=== PATIENT | male | born 1945 | race Caucasian/White ===

== ENCOUNTER 2016-10-29 08:03 | Emergency (ER) | payer MEDICARE, BC ==
[2016-10-29] MEDS ORDERED: SODIUM CHLORIDE 0.9% 500 ML IV STA (08:17)
[2016-10-29] MEDS ORDERED: SODIUM CHLORIDE 0.9% 1,000 ML IV STA (08:17)
--- NOTE | 2016-10-29 08:19 | ED ---
General Adult HPI - General Chief complaint: Neuro Symptoms/Deficit Stated complaint: facial and neck numbness Time Seen by Provider: 10/29/16 08:16 Source: patient, RN notes reviewed, old records reviewed Mode of arrival: ambulatory Limitations: no limitations - History of Present Illness Initial comments: This is a 70-year-old male to the ER for evaluation. She comes in for evaluation of left upper arm and lower arm volar aspect of leg and facial paresthesias, numbness tingling of those extremities. Occasional weakness in his left leg. He states symptoms seem to come and go at this time he is without any complaint. No recent chest pain or headache. Patient to sober from diabetes although well controlled, and high cholesterol - Related Data Home Medications Medication Instructions Recorded Confirmed Benazepril HCl 40 mg PO DAILY 10/29/16 10/29/16 Fluticasone Nasal [place] [Flonase 2 spr EA NOSTRIL DAILY 10/29/16 10/29/16 Nasal [place]] Ibuprofen [Advil] 200 - 400 mg PO Q8HR PRN 10/29/16 10/29/16 Lansoprazole 30 mg PO DAILY 10/29/16 10/29/16 amLODIPine [Norvasc] 10 mg PO DAILY 10/29/16 10/29/16 Allergies Allergy/AdvReac Type Severity Reaction Status Date / Time No Known Allergies Allergy Verified 10/29/16 08:43 Review of Systems ROS Statement: Those systems with pertinent positive or pertinent negative responses have been documented in the HPI. ROS Other: All systems not noted in ROS Statement are negative. Past Medical History Past Medical History: GERD/Reflux, Hypertension History of Any Multi-Drug Resistant Organisms: None Reported Additional Past Surgical History / Comment(s): left knee Smoking Status: Former smoker Past Alcohol Use History: None Reported Past Drug Use History: None Reported General Exam - General Exam Comments Initial Comments: NIH 0 Limitations: no limitations General appearance: alert, in no apparent distress Head exam: Present: atraumatic, normocephalic, normal inspection Eye exam: Present: normal appearance, PERRL, EOMI. Absent: scleral icterus, conjunctival injection, periorbital swelling ENT exam: Present: normal exam, mucous membranes moist Neck exam: Present: normal inspection. Absent: tenderness, meningismus, lymphadenopathy Respiratory exam: Present: normal lung sounds bilaterally. Absent: respiratory distress, wheezes, rales, rhonchi, stridor Cardiovascular Exam: Present: regular rate, normal rhythm, normal heart sounds. Absent: systolic murmur, diastolic murmur, rubs, gallop, clicks GI/Abdominal exam: Present: soft, normal bowel sounds. Absent: distended, tenderness, guarding, rebound, rigid Extremities exam: Present: normal inspection, full ROM, normal capillary refill. Absent: tenderness, pedal edema, joint swelling, calf tenderness Back exam: Present: normal inspection Neurological exam: Present: alert, oriented X3, CN II-XII intact Psychiatric exam: Present: normal affect, normal mood Skin exam: Present: warm, dry, intact, normal color. Absent: rash Course Vital Signs 10/29/16 10/29/16 08:08 09:20 Temperature 97.8 F Pulse Rate 78 98 Respiratory 18 18 Rate Blood Pressure 163/84 154/90 O2 Sat by Pulse 98 96 Oximetry - Reevaluation(s) Reevaluation #1: 10/29/16 11:07 Spoke with patient at length regarding diagnosis and prognosis EKG Findings - EKG Comments: EKG Findings:: EKG shows normal sinus rhythm rate of 74, TN 182, QRS 138, QTc 461 Medical Decision Making - Medical Decision Making 70 male here for evaluation regarding neurological complaints and symptoms. Patient is over from TIA and appears. Patient's diabetes, high cholesterol. Patient's symptoms appear to be strictly left-sided with paresthesias in both his hands legs with occasional loss of strength in his left leg. At this time is neurologically intact, patient will be admitted - Lab Data Result diagrams: 10/29/16 08:40 10/29/16 08:40 Lab Results 10/29/16 10/29/16 10/29/16 Range/Units 08:40 08:40 08:40 WBC 7.4 (3.8-10.6) k/uL RBC 5.16 (4.30-5.90) m/uL Hgb 15.8 (13.0-17.5) gm/dL Hct 47.2 (39.0-53.0) % MCV 91.4 (80.0-100.0) fL MCH 30.7 (25.0-35.0) pg MCHC 33.6 (31.0-37.0) g/dL RDW 13.2 (11.5-15.5) % Plt Count 313 (150-450) k/uL Neutrophils % 63 % Lymphocytes % 24 % Monocytes % 6 % Eosinophils % 3 % Basophils % 1 % Neutrophils # 4.7 (1.3-7.7) k/uL Lymphocytes # 1.8 (1.0-4.8) k/uL Monocytes # 0.5 (0-1.0) k/uL Eosinophils # 0.2 (0-0.7) k/uL Basophils # 0.1 (0-0.2) k/uL PT (9.0-12.0) sec INR (<1.2) APTT (22.0-30.0) sec Sodium 142 (137-145) mmol/L Potassium 4.4 (3.5-5.1) mmol/L Chloride 105 (98-107) mmol/L Carbon Dioxide 24 (22-30) mmol/L Anion Gap 13 mmol/L BUN 15 (9-20) mg/dL Creatinine 0.86 (0.66-1.25) mg/dL Est GFR (MDRD) Af Amer >60 (>60 ml/min/1.73 sqM) Est GFR (MDRD) Non-Af >60 (>60 ml/min/1.73 sqM) Glucose 134 H (74-99) mg/dL Calcium 9.6 (8.4-10.2) mg/dL Phosphorus 3.2 (2.5-4.5) mg/dL Magnesium 1.8 (1.6-2.3) mg/dL Total Bilirubin 0.8 (0.2-1.3) mg/dL AST 30 (17-59) U/L ALT 40 (21-72) U/L Alkaline Phosphatase 109 (38-126) U/L Total Creatine Kinase 90 (55-170) U/L CK-MB (CK-2) 1.1 (0.0-2.4) ng/mL CK-MB (CK-2) Rel Index 1.2 Troponin I <0.012 (0.000-0.034) ng/mL Total Protein 8.2 (6.3-8.2) g/dL Albumin 4.5 (3.5-5.0) g/dL 10/29/16 Range/Units 08:40 WBC (3.8-10.6) k/uL RBC (4.30-5.90) m/uL Hgb (13.0-17.5) gm/dL Hct (39.0-53.0) % MCV (80.0-100.0) fL MCH (25.0-35.0) pg MCHC (31.0-37.0) g/dL RDW (11.5-15.5) % Plt Count (150-450) k/uL Neutrophils % % Lymphocytes % % Monocytes % % Eosinophils % % Basophils % % Neutrophils # (1.3-7.7) k/uL Lymphocytes # (1.0-4.8) k/uL Monocytes # (0-1.0) k/uL Eosinophils # (0-0.7) k/uL Basophils # (0-0.2) k/uL PT 9.6 (9.0-12.0) sec INR 0.9 (<1.2) APTT 24.2 (22.0-30.0) sec Sodium (137-145) mmol/L Potassium (3.5-5.1) mmol/L Chloride (98-107) mmol/L Carbon Dioxide (22-30) mmol/L Anion Gap mmol/L BUN (9-20) mg/dL Creatinine (0.66-1.25) mg/dL Est GFR (MDRD) Af Amer (>60 ml/min/1.73 sqM) Est GFR (MDRD) Non-Af (>60 ml/min/1.73 sqM) Glucose (74-99) mg/dL Calcium (8.4-10.2) mg/dL Phosphorus (2.5-4.5) mg/dL Magnesium (1.6-2.3) mg/dL Total Bilirubin (0.2-1.3) mg/dL AST (17-59) U/L ALT (21-72) U/L Alkaline Phosphatase (38-126) U/L Total Creatine Kinase (55-170) U/L CK-MB (CK-2) (0.0-2.4) ng/mL CK-MB (CK-2) Rel Index Troponin I (0.000-0.034) ng/mL Total Protein (6.3-8.2) g/dL Albumin (3.5-5.0) g/dL - Radiology Data Radiology results: report reviewed (CT brain is negative for acute disease), image reviewed Disposition Clinical Impression: Transient cerebral ischemia Disposition: ADMITTED IP TO THIS HOSP Condition: Fair Referrals: Ivan Hilton MD [Primary Care Provider] - 1-2 days
[2016-10-29 09:03] LABS: Basophils # (A) 0.1 k/uL (0-0.2); Basophils % (A) 1 %; CH 29.7; CHCM 32.6; Eosinophils # (A) 0.2 k/uL (0-0.7); Eosinophils % (A) 3 %; HCT 47.2 % (39.0-53.0); HDW 2.44; HGB 15.8 gm/dL (13.0-17.5); Luc # (Auto) 0.24; Luc % (Auto) 3; Lymphocytes # (A) 1.8 k/uL (1.0-4.8); Lymphocytes % (A) 24 %; MCH 30.7 pg (25.0-35.0); MCHC 33.6 g/dL (31.0-37.0); MCV 91.4 fL (80.0-100.0); Mean Platelet Volume 6.9; Monocytes # (A) 0.5 k/uL (0-1.0); Monocytes % (A) 6 %; Neutrophils # (A) 4.7 k/uL (1.3-7.7); Neutrophils % (A) 63 %; RBC 5.16 m/uL (4.30-5.90); RDW 13.2 % (11.5-15.5); WBC 7.4 k/uL (3.8-10.6); WBC (Perox) 7.06
[2016-10-29 09:13] LABS: ALT 40 U/L (21-72); AST 30 U/L (17-59); Alkaline Phosphatase 109 U/L (38-126); Anion Gap 13 mmol/L; Blood Urea Nitrogen 15 mg/dL (9-20); Calcium 9.6 mg/dL (8.4-10.2); Carbon Dioxide 24 mmol/L (22-30); Chloride 105 mmol/L (98-107); Glucose 134 mg/dL (74-99); Magnesium 1.8 mg/dL (1.6-2.3); Non-African American GFR(MDRD) >60 (>60 ml/min/1.73 sqM); Phosphorous 3.2 mg/dL (2.5-4.5); Potassium 4.4 mmol/L (3.5-5.1); Sodium 142 mmol/L (137-145); Total Bilirubin 0.8 mg/dL (0.2-1.3); Total Protein 8.2 g/dL (6.3-8.2)
[2016-10-29 09:14] LABS: INR 0.9 (<1.2); Partial Thromboplastin Time 24.2 sec (22.0-30.0); Prothrombin Time 9.6 sec (9.0-12.0)
--- NOTE | 2016-10-29 09:28 | CT ---
EXAMINATION TYPE: CT brain wo con DATE OF EXAM: 10/29/2016 COMPARISON: NONE HISTORY: Lt facial,arm and leg numbness CT DLP: 1147 mGycm Automated exposure control for dose reduction was used. FINDINGS: There are mild, generalized changes of sulcal prominence and ventriculomegaly, compatible with mild a trophic change. There is mild, diffuse periventricular white matter lucency, compatible with small ve ssel ischemic change. There is no acute focal lesion, mass effect or midline shift. I do not see evid ence of intracranial blood. Visualized portions of the paranasal sinuses and mastoids are clear. IMPRESSION: 1. NO ACUTE INTRACRANIAL ABNORMALITY. 2. MILD DEGENERATIVE CHANGE.
[2016-10-29 09:31] LABS: Creatine Kinase 90 U/L (55-170)
--- NOTE | 2016-10-29 09:33 | CT ---
EXAMINATION TYPE: CT abdomen pelvis wo con DATE OF EXAM: 10/29/2016 COMPARISON: NONE HISTORY: Rt low back pain and numbness in Lt leg CT DLP: 1112 mGycm Automated exposure control for dose reduction was used. FINDINGS: Visualized portions of the lungs are clear. There is no pleural or pericardial fluid. The h eart is not enlarged. There is a small hiatal hernia. Within the abdomen, the liver is prominent measuring 20 cm. This is largely due to a Neo's lobe. T he spleen and gallbladder are normal. Both adrenal glands are normal. There is no evidence of hydronephrosis or nephrolithiasis. Limited views of the pancreas are normal. There is no significant retroperitoneal, iliac or inguinal adenopathy. There is calcification within the prostate. The bladder is unremarkable. There are scattered diverticula throughout the left side of the colon. There is no radiographic evide nce of diverticulitis. Small bowel loops are normal. There is a direct inguinal hernia on the right containing fat only. There is degenerative change in the SI joints. There is facet arthropathy in the lower lumbar spine. There is degenerative disc disease and fairly prominent hypertrophic spondylosis. There is severe debbi tral canal stenosis at L4-5 secondary to combination of facet hypertrophy and diffuse disc bulging. IMPRESSION: 1. SMALL HIATAL HERNIA. 2. PROMINENCE OF THE LIVER. 3. MINIMAL, UNCOMPLICATED DIVERTICULOSIS OF THE LEFT SIDE OF THE COLON. 4. RIGHT-SIDED DIRECT INGUINAL HERNIA CONTAINING FAT ONLY. 5. MODERATE DEGENERATIVE CHANGE THROUGHOUT THE THORACIC AND LUMBAR SPINES. 6. SEVERE CENTRAL CANAL STENOSIS, L4-5.
[2016-10-29 09:45] LABS: Creatine Kinase MB 1.1 ng/mL (0.0-2.4); Troponin I <0.012 ng/mL (0.000-0.034)
[2016-10-29] MEDS ORDERED: ASPIRIN 325 MG TAB PO STA (11:02)
--- NOTE | 2016-10-29 12:19 | US ---
EXAMINATION TYPE: US carotid duplex BILAT DATE OF EXAM: 10/29/2016 COMPARISON: NONE CLINICAL HISTORY: Stenosis. EXAM MEASUREMENTS: RIGHT: Peak Systolic Velocity (PSV) cm/sec ----- Right CCA: 84.3 ----- Right ICA: 74.8 ----- Right ECA: 99.9 ICA/CCA ratio: 0.9 RIGHT: End Diastole cm/sec ----- Right CCA: 13.3 ----- Right ICA: 10.2 ----- Right ECA: 8.6 LEFT: Peak Systolic Velocity (PSV) cm/sec ----- Left CCA: 78.4 ----- Left ICA: 61.2 ----- Left ECA: 80.1 ICA/CCA ratio: 0.8 LEFT: End Diastole cm/sec ----- Left CCA: 14.8 ----- Left ICA: 13.3 ----- Left ECA: 0.0 VERTEBRALS (direction of flow): Right Vertebral: Antegrade Left Vertebral: Antegrade Mild plaque, no significant velocity elevations. IMPRESSION: I DO NOT SEE EVIDENCE OF A HEMODYNAMICALLY SIGNIFICANT STENOSIS IN EITHER CAROTID SYSTEM. Criteria for Assigning % of Stenosis / Diameter reduction (Estimation based on the indirect measurements of the internal carotid artery velocities (ICA PSV). 1. Normal (no stenosis)=ICA PSV < 125 cm/s: ratio < 2.0: ICA EDV<40 cm/s. 2. Less than 50% stenosis=ICA PSV < 125 cm/s: ratio < 2.0: ICA EDV<40 cm/s. 3. 50 to 69% stenosis=ICA PSV of 125 to 230 cm/s: ration 2.0 ? 4.0: ICA EDV 40-100 cm/s. 4. Greater than 70% stenosis to near occlusion= ICA PSV > 230 cm/s: ratio > 4.0: ICA EDV > 100 cm/s. 5. Near occlusion= ICA PSV velocities may be low or undetectable: variable ratio and ICA EDV. 6. Total occlusion=unable to detect flow.
[2016-10-29 13:00] LABS: Glucose,Whole Blood 129 mg/dL (75-99)
[2016-10-29 13:28] LABS: VBG PH 7.38 (7.31-7.41)
[2016-10-29 13:47] VITALS: BP 151/90; PULSE 103; RESP 16; TEMP 97.8
[2016-10-29] MEDS ORDERED: ATORVASTATIN 80 MG TAB PO SCH (21:00)
[2016-10-30] MEDS ORDERED: ASPIRIN 325 MG TAB PO SCH (09:00)
== END 2016-10-29 13:37 | disposition other institution (70) ==
LOC: EC 08:03 → UNDOADMOB 11:03 → 6SEL 11:03 → EC 13:37
DX: G45.9 Transient cerebral ischemic attack, unspecified (principal); I10 Essential (primary) hypertension; K21.9 Gastro-esophageal reflux disease without esophagitis; Z87.891 Personal history of nicotine dependence; Z79.51 Long term (current) use of inhaled steroids; Z79.899 Other long term (current) drug therapy
CPT/HCPCS: 36415; 70450; 74176; 80053; 82550; 82553; 82803; 83735; 84100; 84484; 85025; 85610; 85730; 93005; 93880; 96360; 96361; 99285

== ENCOUNTER → 2016-11-12 | Outpatient (CLI) | payer MEDICARE, BC ==
--- NOTE | 2016-11-12 15:06 | MR ---
MR brain without contrast HISTORY: Transient cerebral ischemic attack Multiplanar multisequence imaging obtained through the brain. Correlation to CT brain 10/29/2016 There is no restricted diffusion. Cortical atrophy is present. There are normal vascular flow voids p resent. Periventricular confluent and scattered hyperintensities are present within the deep white ma tter, similar foci are present in the juxtacortical and pericallosal brain, centrum semiovale. There is no hemorrhage or hydrocephalus. Cerebellopontine angles, corpus callosum, pituitary, cervical medu llary junction are within normal limits. The orbits show symmetric appearance. IMPRESSION: Findings likely related to chronic small vessel ischemia, age related atrophy. White tamar er demyelination is nonspecific however.
== END | disposition home or self-care (01) ==
LOC: RADMRIMAIN 13:43
PROVIDERS: ATTEND Family Medicine
DX: R90.89 Other abnormal findings on diagnostic imaging of central nervous system (principal); G45.9 Transient cerebral ischemic attack, unspecified
CPT/HCPCS: 70551

== ENCOUNTER → 2016-11-27 | Outpatient (CLI) | payer MEDICARE, BC ==
--- NOTE | 2016-11-28 09:29 | ECHOF ---
Referral Reason:G45.9 transient cerebral ischemic attack MEASUREMENTS -------- HEIGHT: 182.9 cm WEIGHT: 98.0 kg BP: 163/80 IVSd: 1.3 cm (0.6 - 1.1) LVIDd: 4.2 cm (3.9 - 5.3) LVPWd: 1.3 cm (0.6 - 1.1) IVSs: 1.9 cm LVIDs: 2.2 cm LVPWs: 1.6 cm Ao Diam: 3.6 cm (2.0 - 3.7) AV Cusp: 2.4 cm (1.5 - 2.6) LA Diam: 3.1 cm (2.7 - 3.8) MV EXCURSION: 12.169 mm (> 18.000) MV EF SLOPE: 88 mm/s (70 - 150) EPSS: 1.1 cm MV E Kenton: 0.55 m/s MV DecT: 135 ms MV A [place]: 0.65 m/s MV E/A Ratio: 0.85 RAP: 5.00 mmHg RVSP: 11.68 mmHg FINDINGS -------- Resting tachycardia (HR>100bpm). This was a technically good study. There is mild concentric left ventricular hypertrophy. Overall left ventricular systolic function is normal with, an EF between 55 - 60 %. The right ventricle is normal in size and function. The left atrium is normal in size. The right atrium is normal in size. The aortic valve is trileaflet, and appears structurally normal. No aortic stenosis or regurgitation. There is trace mitral regurgitation. Trace tricuspid regurgitation present. The right ventricular systolic pressure, as measured by Doppler, is 11.68mmHg. Pulmonic valve appears structurally normal. The aortic root size is normal. Normal inferior vena cava with normal inspiratory collapse consistent with estimated right atrial pressure of 5 mmHg. The pericardium is normal. CONCLUSIONS -------- 1. Resting tachycardia (HR>100bpm). 2. Trace tricuspid regurgitation present. 3. The right ventricular systolic pressure, as measured by Doppler, is 11.68mmHg. 4. Pulmonic valve appears structurally normal. 5. The aortic root size is normal. 6. Normal inferior vena cava with normal inspiratory collapse consistent with estimated right atrial pressure of 5 mmHg. 7. The pericardium is normal. 8. This was a technically good study. 9. There is mild concentric left ventricular hypertrophy. 10. Overall left ventricular systolic function is normal with, an EF between 55 - 60 %. 11. The right ventricle is normal in size and function. 12. The left atrium is normal in size. 13. The right atrium is normal in size. 14. The aortic valve is trileaflet, and appears structurally normal. No aortic stenosis or regurgitation. 15. There is trace mitral regurgitation. DIRECTOR CLOUD TRANSFORMATION: Maricruz Oneal RDCS
== END | disposition home or self-care (01) ==
LOC: RADECHMAIN 13:10
PROVIDERS: ATTEND Family Medicine
DX: I08.1 Rheumatic disorders of both mitral and tricuspid valves (principal); R00.0 Tachycardia, unspecified; G45.9 Transient cerebral ischemic attack, unspecified
CPT/HCPCS: 93306

== ENCOUNTER → 2020-02-23 | Outpatient (CLI) | payer MEDICARE, BC ==
--- NOTE | 2020-02-23 15:59 | FL ---
Fluoroscopy INDICATION: Dysphasia FINDINGS: Fluoroscopy time: 45 seconds. Images obtained: 26. Fluoroscopic spot imaging and overhead radiographs were obtained. Esophagus dilates to normal caliber has normal contour gastroesophageal junction. Gastroesophageal ju nction opens to normal caliber. No intraluminal or extra defects are evident. Reflux was not identifi ed. Note is made of tertiary contractions during the examination. There is incomplete stripping of the es ophageal bolus the horizontal drinking position. Overhead radiographs demonstrate a large second portion duodenal diverticulum. IMPRESSIONS: 1. Presbyesophagus. 2. Duodenal diverticulum
== END | disposition home or self-care (01) ==
LOC: RADUSWWP 10:28
PROVIDERS: ATTEND Otolaryngology
DX: K22.8 Other specified diseases of esophagus (principal); K57.10 Diverticulosis of small intestine without perforation or abscess without bleeding
CPT/HCPCS: 74220

== ENCOUNTER 2020-03-20 06:08 | Day surgery (SDC) | payer MEDICARE, BC ==
[2020-03-16 13:56] VITALS: BMI 27.8
[~2020-03-20 06:08] MED LIST: ACETAMINOPHEN TAB 500 MG TAB PO PRN; DEXAMETHASONE SOD PHOSPHATE 4 MG/ML 1 ML VIAL IV ONE; HEPARIN SODIUM,PORCINE 5,000 UNIT/ML 1 ML VIAL SQ PRN; HYDROmorphone 0.5 MG/0.5 ML SYRINGE IVP PRN; LACTATED RINGERS 1,000 ML IV SCH; LIDOCAINE 1% (10MG/ML) FOR IV START INTRADERMA PRN; MIDAZOLAM 2 MG/2 ML VIAL IV PRN; ONDANSETRON 4 MG/2 ML VIAL IVP ONE
[2020-03-20 07:06] LABS: Glucose,Whole Blood 126 mg/dL (75-99)
[2020-03-20] MEDS ORDERED: BUPIVACAINE (PF) 0.25% 30 ML VIAL SQ ONE ×2 (07:18→08:16)
[2020-03-20] MEDS ORDERED: ACETAMINOPHEN IV (For NPO) 1,000 MG/100 ML VIAL IVPB ONE (07:55)
[2020-03-20] MEDS ORDERED: DEXAMETHASONE SOD PHOSPHATE 4 MG/ML 1 ML VIAL ONE (07:57)
[2020-03-20] MEDS ORDERED: MIDAZOLAM 2 MG/2 ML VIAL ONE (07:57)
[2020-03-20] MEDS ORDERED: GLYCOPYRROLATE 0.2 MG/ML 2 ML VIAL ONE (07:57)
[2020-03-20] MEDS ORDERED: ROPIVACAINE 5 MG/ML 30 ML VIAL ONE (07:57)
[2020-03-20] MEDS ORDERED: SUCCINYLCHOLINE CHLORIDE 100 MG/5 ML SYR IV ONE (07:57)
[2020-03-20] MEDS ORDERED: LIDOCAINE 1% INJ 10MG/ML (20 ML MDV) ONE (07:57)
[2020-03-20] MEDS ORDERED: fentaNYL (PF) 50 MCG/ML 2 ML AMP ONE (07:57)
[2020-03-20] MEDS ORDERED: KETAMINE 10 MG/ML 20 ML VIAL ONE (07:57)
[2020-03-20] MEDS ORDERED: PHENYLEPHRINE 10 MG/ML VIAL ONE (07:57)
[2020-03-20] MEDS ORDERED: PROPOFOL 10 MG/ML 20 ML VIAL IV ONE (07:57)
[2020-03-20] MEDS ORDERED: ROCURONIUM 10 MG/ML (10 ML VIAL) IV ONE (07:57)
[2020-03-20] MEDS ORDERED: NEOSTIGMINE 1 MG/ML 10 ML VIAL ONE (07:57)
[2020-03-20 08:52] VITALS: TEMP 99
[2020-03-20 09:01] VITALS: RESP 16
[2020-03-20] MEDS ORDERED: LACTATED RINGERS 1,000 ML IV ONE (09:02)
--- NOTE | 2020-03-20 09:03 | P.GSHP ---
History of Present Illness H&P Date: 03/20/20 Chief Complaint: Right inguinal hernia This a 74-year-old male who presents today for laparoscopic robotic sparing cranial hernia. Patient has a complaints of a tender mass the right groin. Past Medical History Past Medical History: Diabetes Mellitus, GERD/Reflux, Hypertension Additional Past Medical History / Comment(s): problems swallowing -pills get stuck-crushes pills with applesauce -states EGD scheduled for 03/22/20, no longer on diabetic meds-manages diet and exercises., right inguinal hernia. History of Any Multi-Drug Resistant Organisms: None Reported Additional Past Surgical History / Comment(s): left knee Past Anesthesia/Blood Transfusion Reactions: No Reported Reaction Past Psychological History: Depression Additional Psychological History / Comment(s): passed November 08, 2019. Smoking Status: Former smoker Past Alcohol Use History: None Reported Additional Past Alcohol Use History / Comment(s): quit smoking 42 years ago , smoked 1 ppd, started smoking age 17. Past Drug Use History: None Reported - Past Family History Mother Family Medical History: No Reported History Medications and Allergies Home Medications Medication Instructions Recorded Confirmed Type Fluticasone Nasal [place] [Flonase 1 - 2 spr EA NOSTRIL DAILY PRN 10/29/16 03/20/20 History Nasal [place]] Benazepril HCl 40 mg PO DAILY 03/16/20 03/20/20 History Hydrocortisone Cream 1 applic TOPICAL DIRECTED PRN 03/16/20 03/20/20 History [Hydrocortisone 2.5% Cream] Lansoprazole 30 mg PO Q48H 03/16/20 03/20/20 History amLODIPine [Norvasc] 10 mg PO DAILY 03/16/20 03/20/20 History Allergies Allergy/AdvReac Type Severity Reaction Status Date / Time No Known Allergies Allergy Verified 03/20/20 06:47 Surgical - Exam Vital Signs Temp Pulse Resp BP Pulse Ox 97.8 F 79 16 129/72 98 03/20/20 06:41 03/20/20 06:41 03/20/20 06:41 03/20/20 06:41 03/20/20 06:41 - General well developed, well nourished, no distress - Eyes PERRL - ENT normal pinna - Neck no masses - Respiratory normal expansion - Cardiovascular Rhythm: regular - Abdomen Abdomen: soft, non tender Results - Labs Abnormal Lab Results - Last 24 Hours (Table) 03/20/20 Range/Units 07:03 POC Glucose (mg/dL) 126 H (75-99) mg/dL Assessment and Plan Assessment: Right inguinal hernia. We'll perform laparoscopic robotic-assisted repair.
--- NOTE | 2020-03-20 09:05 | P.OP ---
Date of Procedure: 03/20/20 Preoperative Diagnosis: Right inguinal hernia Postoperative Diagnosis: Right inguinal hernia Procedure(s) Performed: Laparoscopic robotic system repair of right inguinal hernia Anesthesia: ALEX Surgeon: Carlos Barton Estimated Blood Loss (ml): 5 Pathology: none sent Condition: stable Disposition: PACU Description of Procedure: The patient's placed on the operating table in the supine position. The patient received general anesthesia. The patient's abdomen was prepped and draped in usual sterile fashion. The skin was anesthetized 1% local Xylocaine at the incision sites. Using an 11 blade a skin incision was made at the umbilicus. The fascia was grasped with a Krishna and then the peritoneal cavity was entered with the Veress needle. Position of the Veress needle was confirmed with a positive drop test. After adequate insufflation a 5 mm trocar was placed into the peritoneal cavity. The Laparoscope was placed the peritoneal cavity. And a robotic 8 mm trocar was placed in the right lateral position and then another 8 mm robotic trochars placed in the left lateral position. The original 5 mm trocar was exchanged for a 12 mm trocar. The patient was placed in reverse Trendelenburg and then the patient was docked to the robot. Next the peritoneum over top of the hernia was incised and then using blunt and sharp dissection and electrocautery the hernia sac was dissected free from the floor of the inguinal canal. The hernia sac was completely reduced into the peritoneal cavity. And then using the [employer] recruiter mesh the hernia was repaired. The peritoneum was then sutured with 20V lock suture. The patient was then undocked the robot. The needle was withdrawn from the peritoneal cavity. The umbilical trocar site was closed with 0 Ethibond suture. The skin was closed interrupted 3-0 Monocryl suture. Dermabond dressing was applied. Patient was sent to recovery in stable condition.
[2020-03-20 10:33] VITALS: BP 134/78; PULSE 81
--- NOTE | 2020-03-20 13:59 | P.ANPRN ---
Procedure Note - Anesthesia - Nerve Block Performed Bilateral Transversus Abdominis Single Time Out Performed: Yes Date of Procedure: 03/20/20 Procedure Start Time: :18 Procedure Stop Time: : Location of Patient: PreOp Indication: Acute Post-Operative Pain, Requested by Surgeon Sedation Type: Sedate with meaningful contact maintained Preparation: Sterile Prep Position: Supine Needle Types: Pajunk Needle Gauge: 21 Ultrasound used to visualize needle placement: Yes Ultrasound used to observe medication spread: Yes Blood Aspirated: No Pain Paresthesia on Injection Noted: No Resistance on Injection: Normal Image Stored and Saved: Yes Events: Uneventful and Well Tolerated (ropi .5% 20 cc plus dexamethasone 4mg bilaterally)
== END 2020-03-20 11:54 | disposition home or self-care (01) ==
LOC: OR 06:08
PROVIDERS: ATTEND Surgery
DX: K40.90 Unilateral inguinal hernia, without obstruction or gangrene, not specified as recurrent (principal); E11.9 Type 2 diabetes mellitus without complications; I10 Essential (primary) hypertension; K21.9 Gastro-esophageal reflux disease without esophagitis; F32.9 Major depressive disorder, single episode, unspecified; Z87.891 Personal history of nicotine dependence; Z63.4 Disappearance and death of family member; Z79.899 Other long term (current) drug therapy; Z98.890 Other specified postprocedural states
CPT/HCPCS: 49650; 64488; C1781; J2250; J1644; J1100; J2370; J2710; J0690; J2405; J2001; J3010; J2795; J0131; J0330; J2704

== ENCOUNTER 2020-03-20 14:26 | Emergency (ER) | payer MEDICARE, BC ==
[2020-03-20 14:35] VITALS: BP 146/86; PULSE 100; RESP 20; TEMP 98.6
--- NOTE | 2020-03-20 14:40 | ED ---
Male Urogenital HPI - General Chief complaint: Urogenital Stated complaint: Post op male gu issues Time Seen by Provider: 03/20/20 14:38 Source: patient Mode of arrival: ambulatory Limitations: no limitations - History of Present Illness Initial comments: 74-year-old male presenting to the emergency department with a chief complaint of bladder pressure. Patient states he was discharged earlier today after having a right inguinal hernia repaired upper scapula. Patient states after he was discharged, he developed some urinary retention and pressure in the suprapubic region. Patient states she is still able to urinate, although not as much as usual. He does report history of an enlarged prostate but the obstructive urinary symptoms and never been this significant. States he contacted who performed the procedure and he advised them to come to emergency department for evaluation. He denies any hematuria, dysuria. Denies any abdominal pain chest pain shortness of breath. States there is mild pain at the incision sites but nothing significant. - Related Data Home Medications Medication Instructions Recorded Confirmed Fluticasone Nasal [place] [Flonase 1 - 2 spr EA NOSTRIL DAILY PRN 10/29/16 03/20/20 Nasal [place]] Benazepril HCl 40 mg PO DAILY 03/16/20 03/20/20 Hydrocortisone Cream 1 applic TOPICAL DIRECTED PRN 03/16/20 03/20/20 [Hydrocortisone 2.5% Cream] Lansoprazole 30 mg PO Q48H 03/16/20 03/20/20 amLODIPine [Norvasc] 10 mg PO DAILY 03/16/20 03/20/20 Previous Rx's Medication Instructions Recorded Acetaminophen Tab [Tylenol] 650 mg PO Q6H #30 tab 03/20/20 Docusate [Colace] 100 mg PO BID #20 capsule 03/20/20 Ibuprofen [Motrin] 600 mg PO Q6HR PRN #40 tab 03/20/20 oxyCODONE HCL [OxyIR] 5 mg PO Q4H PRN 3 Days #18 tab 03/20/20 Allergies Allergy/AdvReac Type Severity Reaction Status Date / Time No Known Allergies Allergy Verified 03/20/20 14:35 Review of Systems ROS Statement: Those systems with pertinent positive or pertinent negative responses have been documented in the HPI. ROS Other: All systems not noted in ROS Statement are negative. Past Medical History Past Medical History: GERD/Reflux, Hypertension History of Any Multi-Drug Resistant Organisms: None Reported Additional Past Surgical History / Comment(s): left knee, Inguinal hernia Past Psychological History: No Psychological Hx Reported Smoking Status: Never smoker Past Alcohol Use History: None Reported Past Drug Use History: None Reported General Exam Limitations: no limitations General appearance: alert, in no apparent distress Head exam: Present: atraumatic, normocephalic, normal inspection Eye exam: Present: normal appearance, PERRL, EOMI Pupils: Present: normal accommodation ENT exam: Present: normal exam, normal oropharynx, mucous membranes moist, TM's normal bilaterally, normal external ear exam Neck exam: Present: normal inspection, full ROM. Absent: tenderness Respiratory exam: Present: normal lung sounds bilaterally. Absent: respiratory distress, wheezes, rales Cardiovascular Exam: Present: regular rate, normal rhythm, normal heart sounds. Absent: systolic murmur, diastolic murmur GI/Abdominal exam: Present: soft, tenderness (Mild tenderness over the bladder.), other (Multiple healing incision sites in the abdomen secondary to liver scopic surgery.). Absent: distended, guarding, rebound exam: Present: normal inspection. Absent: testicular tenderness, urethral discharge, scrotal swelling, vertical testicular lie, circumcision Extremities exam: Present: normal inspection, full ROM, normal capillary refill. Absent: tenderness, pedal edema, joint swelling, calf tenderness Back exam: Present: normal inspection, full ROM. Absent: tenderness, CVA tenderness (R), CVA tenderness (L) Neurological exam: Present: alert, oriented X3 Psychiatric exam: Present: normal affect, normal mood Skin exam: Present: warm, dry, intact, normal color Course Vital Signs 03/20/20 14:32 Temperature 98.6 F Pulse Rate 100 Respiratory 20 Rate Blood Pressure 146/86 O2 Sat by Pulse 97 Oximetry Medical Decision Making - Medical Decision Making 74-year-old male presenting to emergency Department with chief complaint of bladder pressure. On physical examination, patient has mild tenderness over the bladder. There is several incision sites secondary to inguinal hernia repair performed earlier today by . Bladder scan reveals 500 mL of post void residual volume. Full catheter was inserted and patient reported significant improvement in symptoms. She was given contact information for a urologist and he was advised to follow-up to have the Myers catheter removed. He was given thorough instructions regarding Myers catheter care. Patient is likely having postsurgical urinary retention from the anesthesia. Patient was offered laboratory workup, he declined. Strict return parameters were thoroughly discussed patient is understanding and agreeable. Case discussed with physician. - Lab Data Lab Results 03/20/20 Range/Units 15:00 Urine Color Light Yellow Urine Appearance Clear (Clear) Urine pH 6.0 (5.0-8.0) Ur Specific [place] 1.006 (1.001-1.035) Urine Protein Negative (Negative) Urine Glucose (UA) 3+ H (Negative) Urine Ketones Negative (Negative) Urine Blood Negative (Negative) Urine Nitrite Negative (Negative) Urine Bilirubin Negative (Negative) Urine Urobilinogen <2.0 (<2.0) mg/dL Ur Leukocyte Esterase Negative (Negative) Disposition Clinical Impression: Postoperative urinary retention Disposition: HOME SELF-CARE Condition: Stable Instructions (If sedation given, give patient instructions): Myers Catheter Placement and Care (ED), Myers Catheter Removal (DC) Additional Instructions: Follow-up with urology to have the Myers catheter removed. Return to emergency department if symptoms worsen. Is patient prescribed a controlled substance at d/c from ED?: No Referrals: Ivan Hilton MD [Primary Care Provider] - 1-2 days Jon Vásquez MD [STAFF PHYSICIAN] - 1-2 days Time of Disposition: 15:36
[2020-03-20 15:20] LABS: Appearance,Urine Clear (Clear); Bilirubin,Urine Negative (Negative); Blood,Urine Negative (Negative); Color,Urine Light Yellow; Glucose,Urine (UA) 3+ (Negative); Ketones,Urine Negative (Negative); Leukocyte Esterase,Urine Negative (Negative); Nitrite,Urine Negative (Negative); Protein,Urine Negative (Negative); Specific Gravity,Urine 1.006 (1.001-1.035); Urobilinogen,Urine <2.0 mg/dL (<2.0)
== END 2020-03-20 16:00 | disposition home or self-care (01) ==
LOC: EC 14:26
DX: R33.9 Retention of urine, unspecified (principal); N32.9 Bladder disorder, unspecified; K21.9 Gastro-esophageal reflux disease without esophagitis; I10 Essential (primary) hypertension; Z79.899 Other long term (current) drug therapy
CPT/HCPCS: 51702; 51798; 81003; 99284

== ENCOUNTER 2020-03-24 07:08 | Emergency (ER) | payer MEDICARE, BC ==
[2020-03-24 07:21] VITALS: RESP 18
--- NOTE | 2020-03-24 07:42 | ED ---
Male Urogenital HPI - General Chief complaint: Urogenital Stated complaint: Bladder Issues Time Seen by Provider: 03/24/20 07:28 Source: patient, RN notes reviewed Mode of arrival: ambulatory Limitations: no limitations - History of Present Illness Initial comments: This is a 74-year-old male with a history of a right inguinal hernia repair 15 who had to come back to urinary retention and get a catheter has been doing fine up until yesterday when he started developing burning with urination and frequency and some incontinence the geiger are somewhat better. He did contact his urologist who did instruct him to come here for evaluation. Patient denied any fevers chills or sweats. He did have a temperature 100.4 oh chills no shakes no pain other than the postop pain. No other complaints or modifying factors MD Complaint: dysuria - Related Data Home Medications Medication Instructions Recorded Confirmed Fluticasone Nasal [place] [Flonase 1 - 2 spr EA NOSTRIL DAILY PRN 10/29/1603/20 Nasal [place]] Benazepril HCl 40 mg PO DAILY 03/16/20 03/20/20 Hydrocortisone Cream 1 applic TOPICAL DIRECTED PRN 03/16/20 03/20/20 [Hydrocortisone 2.5% Cream] Lansoprazole 30 mg PO Q48H 03/16/20 03/20/20 amLODIPine [Norvasc] 10 mg PO DAILY 03/16/20 03/20/20 Previous Rx's Medication Instructions Recorded Acetaminophen Tab [Tylenol] 650 mg PO Q6H #30 tab 03/20/20 Docusate [Colace] 100 mg PO BID #20 capsule 03/20/20 Ibuprofen [Motrin] 600 mg PO Q6HR PRN #40 tab 03/20/20 oxyCODONE HCL [OxyIR] 5 mg PO Q4H PRN 3 Days #18 tab 03/20/20 Amoxic-Pot Clav 875-125Mg 1 tab PO Q12HR 10 Days #20 tab 03/24/20 [Augmentin 875-125] Phenazopyridine HCl [Pyridium] 100 mg PO TID #12 tab 03/24/20 Allergies Allergy/AdvReac Type Severity Reaction Status Date / Time No Known Allergies Allergy Verified 03/24/20 07:20 Review of Systems ROS Statement: Those systems with pertinent positive or pertinent negative responses have been documented in the HPI. ROS Other: All systems not noted in ROS Statement are negative. Past Medical History Past Medical History: GERD/Reflux, Hypertension History of Any Multi-Drug Resistant Organisms: None Reported Additional Past Surgical History / Comment(s): left knee, Inguinal hernia Past Psychological History: No Psychological Hx Reported Smoking Status: Never smoker Past Alcohol Use History: None Reported Past Drug Use History: None Reported General Exam - General Exam Comments Initial Comments: This is a well-developed well-nourished awake alert oriented times 3 male Limitations: no limitations General appearance: alert, in no apparent distress Head exam: Present: atraumatic, normocephalic, normal inspection Eye exam: Present: normal appearance, PERRL, EOMI. Absent: scleral icterus, conjunctival injection, periorbital swelling Neck exam: Present: normal inspection, full ROM. Absent: tenderness, meningi smus, lymphadenopathy Respiratory exam: Present: normal lung sounds bilaterally. Absent: respiratory distress, wheezes, rales, rhonchi, stridor Cardiovascular Exam: Present: regular rate, normal rhythm, normal heart sounds. Absent: systolic murmur, diastolic murmur, rubs, gallop, clicks GI/Abdominal exam: Present: soft, other (Minimal discomfort secondary to the surgery) exam: Present: normal inspection Extremities exam: Present: normal inspection, full ROM, normal capillary refill. Absent: tenderness, pedal edema, joint swelling, calf tenderness Back exam: Present: full ROM Neurological exam: Present: alert, oriented X3, CN II-XII intact Psychiatric exam: Present: normal affect, normal mood Skin exam: Present: warm, dry, intact, normal color. Absent: rash Course Vital Signs 03/24/20 07:18 Temperature 99.0 F Pulse Rate 95 Respiratory 18 Rate Blood Pressure 112/63 O2 Sat by Pulse 98 Oximetry Medical Decision Making - Medical Decision Making I did discuss findings with the patient and with Dr. Vásquez. Patient does demonstrate a leukocytosis but on exam he demonstrates no evidence of any problems with the surgery sites. Minimal discomfort palpation no fevers chills or sweats. Patient has stated on several occasions he will not stay in hospital. He was given a dose of Rocephin and will be switched to Augmentin. He is invited back at any time. Otherwise the clinical presentation is consistent with a cystitis. Return parameters were discussed - Lab Data Result diagrams: 03/24/20 08:10 03/24/20 08:10 Lab Results 03/24/20 03/24/20 03/24/20 Range/Units 07:47 08:10 08:10 WBC 29.6 H (3.8-10.6) k/uL RBC 4.64 (4.30-5.90) m/uL Hgb 14.0 (13.0-17.5) gm/dL Hct 41.1 (39.0-53.0) % MCV 88.5 (80.0-100.0) fL MCH 30.2 (25.0-35.0) pg MCHC 34.1 (31.0-37.0) g/dL RDW 13.1 (11.5-15.5) % Plt Count 265 (150-450) k/uL MPV 6.8 Neutrophils % 91 % Lymphocytes % 2 % Monocytes % 5 % Eosinophils % 1 % Basophils % 1 % Neutrophils # 26.8 H (1.3-7.7) k/uL Lymphocytes # 0.6 L (1.0-4.8) k/uL Monocytes # 1.5 H (0-1.0) k/uL Eosinophils # 0.2 (0-0.7) k/uL Basophils # 0.2 (0-0.2) k/uL Manual Slide Review Performed Sodium 132 L (137-145) mmol/L Potassium 4.0 (3.5-5.1) mmol/L Chloride 101 (98-107) mmol/L Carbon Dioxide 24 (22-30) mmol/L Anion Gap 7 mmol/L BUN 15 (9-20) mg/dL Creatinine 1.16 (0.66-1.25) mg/dL Est GFR (CKD-EPI)AfAm 72 (>60 ml/min/1.73 sqM) Est GFR (CKD-EPI)NonAf 62 (>60 ml/min/1.73 sqM) Glucose 147 H (74-99) mg/dL Calcium 8.8 (8.4-10.2) mg/dL Total Bilirubin 1.4 H (0.2-1.3) mg/dL AST 24 (17-59) U/L ALT 16 (4-49) U/L Alkaline Phosphatase 80 (38-126) U/L Total Protein 6.8 (6.3-8.2) g/dL Albumin 3.6 (3.5-5.0) g/dL Urine Color Yellow Urine Appearance Clear (Clear) Urine pH 6.0 (5.0-8.0) Ur Specific [place] 1.017 (1.001-1.035) Urine Protein Trace H (Negative) Urine Glucose (UA) Negative (Negative) Urine Ketones 1+ H (Negative) Urine Blood Negative (Negative) Urine Nitrite Negative (Negative) Urine Bilirubin Negative (Negative) Urine Urobilinogen <2.0 (<2.0) mg/dL Ur Leukocyte Esterase Moderate H (Negative) Urine RBC 1 (0-5) /hpf Urine WBC 35 H (0-5) /hpf Urine Mucus Few H (None) /hpf Disposition Clinical Impression: Cystitis, Leukocytosis, History of herniorrhaphy Disposition: HOME SELF-CARE Condition: Good Instructions (If sedation given, give patient instructions): Urinary Tract Infection in Men (ED) Additional Instructions: Increase oral fluids Prescriptions: Amoxic-Pot Clav 875-125Mg [Augmentin 875-125] 1 tab PO Q12HR 10 Days #20 tab Phenazopyridine HCl [Pyridium] 100 mg PO TID #12 tab Is patient prescribed a controlled substance at d/c from ED?: No Referrals: Ivan Hilton MD [Primary Care Provider] - 1-2 days
[2020-03-24 07:57] LABS: Appearance,Urine Clear (Clear); Bilirubin,Urine Negative (Negative); Blood,Urine Negative (Negative); Color,Urine Yellow; Glucose,Urine (UA) Negative (Negative); Ketones,Urine 1+ (Negative); Leukocyte Esterase,Urine Moderate (Negative); Mucus,Urine Few /hpf; Nitrite,Urine Negative (Negative); Protein,Urine Trace (Negative); RBC,Urine 1 /hpf (0-5); Specific Gravity,Urine 1.017 (1.001-1.035); Urobilinogen,Urine <2.0 mg/dL (<2.0); WBC,Urine 35 /hpf (0-5)
[2020-03-24 08:18] LABS: Basophils # (A) 0.2 k/uL (0-0.2); Basophils % (A) 1 %; Eosinophils # (A) 0.2 k/uL (0-0.7); Eosinophils % (A) 1 %; HCT 41.1 % (39.0-53.0); Lymphocytes # (A) 0.6 k/uL (1.0-4.8); Lymphocytes % (A) 2 %; MCH 30.2 pg (25.0-35.0); MCHC 34.1 g/dL (31.0-37.0); MCV 88.5 fL (80.0-100.0); Mean Platelet Volume 6.8; Monocytes # (A) 1.5 k/uL (0-1.0); Monocytes % (A) 5 %; Neutrophils # (A) 26.8 k/uL (1.3-7.7); Neutrophils % (A) 91 %; Platelet Count 265 k/uL (150-450); RBC 4.64 m/uL (4.30-5.90); RDW 13.1 % (11.5-15.5); WBC 29.6 k/uL (3.8-10.6)
[2020-03-24 08:27] LABS: Albumin 3.6 g/dL (3.5-5.0); Calcium 8.8 mg/dL (8.4-10.2); Total Bilirubin 1.4 mg/dL (0.2-1.3); Total Protein 6.8 g/dL (6.3-8.2)
[2020-03-24] MEDS ORDERED: cefTRIAXone IN SWFI 1,000 MG/10 ML SYRINGE IVP STA (08:54)
[2020-03-24 09:11] VITALS: BP 106/72
[2020-03-24 09:36] VITALS: PULSE 84; TEMP 97.9
== END 2020-03-24 09:35 | disposition home or self-care (01) ==
LOC: EC 07:08
DX: N30.90 Cystitis, unspecified without hematuria (principal); D72.829 Elevated white blood cell count, unspecified; Z98.890 Other specified postprocedural states; K21.9 Gastro-esophageal reflux disease without esophagitis; I10 Essential (primary) hypertension; Z79.899 Other long term (current) drug therapy
CPT/HCPCS: 36415; 80053; 81001; 85025; 87040; 87086; 96374; 99283

== ENCOUNTER 2020-03-25 22:07 | Inpatient (IN) | payer MEDICARE, BC ==
--- NOTE | 2020-03-25 22:56 | ED ---
Male Urogenital HPI - General Source: patient Mode of arrival: ambulatory Limitations: no limitations <Anastasia Pacheco - Last Filed: 03/26/20 01:35> <Chance Roche - Last Filed: 03/26/20 08:40> - General Chief complaint: Urogenital Stated complaint: Revisit Urogenital Time Seen by Provider: 03/25/20 22:16 - History of Present Illness Initial comments: 74yo male s/p right inguinal hernia repait 03/20 presented for chief complaint of urinary retention lower abdominal discomfort. Patient states he has lower abdominal pressure and has not been able to fully empty his bladder. He states he believes he is retaining urine. Patient states he had issues shortly after his inguinal hernia repair-and had catheterization which was removed on . Patient states she is experiencing similar symptoms on Thursday and presents to the ER by was found to not be retaining urine, and had findings and urinalysis concerning for possible urinary tract infection and was discharged home. Patient states he has been running some fevers at home with highest being 100.4f yesterday. patient denies fevers today. patient denies surgical site pain/drainage or redness. denies chills or general malaise. On arrival patient does not appear in distress nor toxic. blood culture from 03/24 (-). (Anastasia Pacheco) - Related Data Home Medications Medication Instructions Recorded Confirmed Fluticasone Nasal [place] [Flonase 1 - 2 spr EA NOSTRIL DAILY PRN 10/29/16 Nasal [place]] Benazepril HCl 40 mg PO DAILY 03/16/20 03/26/20 Hydrocortisone Cream 1 applic TOPICAL DAILY PRN 03/16/20 03/26/20 [Hydrocortisone 2.5% Cream] Lansoprazole 30 mg PO Q48H 03/16/20 03/26/20 amLODIPine [Norvasc] 10 mg PO DAILY 03/16/20 03/26/20 Acetaminophen Tab [Tylenol] 650 mg PO Q6H PRN 03/26/20 03/26/20 Tamsulosin [Flomax] 0.4 mg PO DAILY 03/26/20 03/26/20 Previous Rx's Medication Instructions Recorded Docusate [Colace] 100 mg PO BID #20 capsule 03/20/20 Ibuprofen [Motrin] 600 mg PO Q6HR PRN #40 tab 03/20/20 oxyCODONE HCL [OxyIR] 5 mg PO Q4H PRN 3 Days #18 tab 03/20/20 Amoxic-Pot Clav 875-125Mg 1 tab PO Q12HR 10 Days #20 tab 03/24/20 [Augmentin 875-125] Allergies Allergy/AdvReac Type Severity Reaction Status Date / Time No Known Allergies Allergy Verified 03/26/20 07:36 Review of Systems ROS Other: All systems not noted in ROS Statement are negative. <RichardnuraAnastasia L - Last Filed: 03/26/20 01:35> ROS Other: All systems not noted in ROS Statement are negative. <Chance Roche - Last Filed: 03/26/20 08:40> ROS Statement: Those systems with pertinent positive or pertinent negative responses have been documented in the HPI. Past Medical History Past Medical History: Diabetes Mellitus, GERD/Reflux, Hypertension History of Any Multi-Drug Resistant Organisms: None Reported Past Surgical History: Hernia Repair Additional Past Surgical History / Comment(s): left knee, Inguinal hernia Past Psychological History: No Psychological Hx Reported Smoking Status: Never smoker Past Alcohol Use History: None Reported Past Drug Use History: None Reported <RichardnuraAnastasia L - Last Filed: 03/26/20 01:35> General Exam Limitations: no limitations <Anastasia Pacheco Carmelo - Last Filed: 03/26/20 01:35> - General Exam Comments Initial Comments: General: The patient is awake and alert, in no distress Eye: +3 mm pupils are equal, round and reactive to light, extra-ocular movements are intact. No nystagmus. There is normal conjunctiva bilaterally. No signs of icterus. Ears, nose, mouth and throat: There are moist mucous membranes and no oral lesions. Neck: The neck is supple, there is no tenderness or JVD. Cardiovascular: There is a regular rate and rhythm. No murmur, rub or gallop is appreciated. Respiratory: Lungs are clear to auscultation, respirations are non-labored, breath sounds are equal. No wheezes, stridor, rales, or rhonchi. Gastrointestinal: Soft, non-distended, suprapubic tenderness, no tenderness over surgical site, no abdomen without masses or organomegaly noted. There is no rebound or guarding present. Musculoskeletal: Normal ROM, no tenderness. Strength 5/5. Sensation intact. Radial pulses equal bilaterally 2+. Neurological: A&O x 3. CN II-XII intact grossly, There are no obvious motor or sensory deficits. Coordination appears grossly intact. Speech is normal. Skin: Skin is warm and dry and no rashes or lesions are noted. Psychiatric: Cooperative, appropriate mood & affect, normal judgment. (Anastasia Pacheco) Course Vital Signs 03/25/20 03/26/20 22:08 00:58 Temperature 99 F Pulse Rate 100 55 L Respiratory 22 18 Rate Blood Pressure 123/68 110/67 O2 Sat by Pulse 97 95 Oximetry Medical Decision Making - Lab Data Result diagrams: 03/25/20 23:06 03/25/20 23:06 <Anastasia Pacheco - Last Filed: 03/26/20 01:35> - Lab Data Result diagrams: 03/25/20 23:06 03/25/20 23:06 <Chance Roche - Last Filed: 03/26/20 08:40> - Medical Decision Making significant leukocytosis, hx of fevers, urinary retention. retained >400 after cath. patient has CT obtained secondary to leukocytosis/recent surgery. CT revealed possible prostate abscess. pt will be admitted for further evaluation/treatment. Dr roche and patient agreeable to care plan. (Anastasia Pacheco) I saw this patient in conjunction with the physician [employer] assistant principal. I performed independent history and physical exam. Agree with case management. (Chance Roche) - Lab Data Lab Results 03/25/20 03/25/20 03/25/20 Range/Units 23:06 23:06 23:06 WBC 21.9 H (3.8-10.6) k/uL RBC 4.43 (4.30-5.90) m/uL Hgb 13.3 (13.0-17.5) gm/dL Hct 39.8 (39.0-53.0) % MCV 89.8 (80.0-100.0) fL MCH 29.9 (25.0-35.0) pg MCHC 33.3 (31.0-37.0) g/dL RDW 13.1 (11.5-15.5) % Plt Count 262 (150-450) k/uL MPV 7.3 Neutrophils % 85 % Lymphocytes % 5 % Monocytes % 6 % Eosinophils % 2 % Basophils % 1 % Neutrophils # 18.6 H (1.3-7.7) k/uL Lymphocytes # 1.1 (1.0-4.8) k/uL Monocytes # 1.3 H (0-1.0) k/uL Eosinophils # 0.5 (0-0.7) k/uL Basophils # 0.2 (0-0.2) k/uL Sodium 132 L (137-145) mmol/L Potassium 3.6 (3.5-5.1) mmol/L Chloride 101 (98-107) mmol/L Carbon Dioxide 22 (22-30) mmol/L Anion Gap 9 mmol/L BUN 17 (9-20) mg/dL Creatinine 0.96 (0.66-1.25) mg/dL Est GFR (CKD-EPI)AfAm >90 (>60 ml/min/1.73 sqM) Est GFR (CKD-EPI)NonAf 78 (>60 ml/min/1.73 sqM) Glucose 140 H (74-99) mg/dL Calcium 8.6 (8.4-10.2) mg/dL Total Bilirubin 0.6 (0.2-1.3) mg/dL AST 34 (17-59) U/L ALT 20 (4-49) U/L Alkaline Phosphatase 104 (38-126) U/L Total Protein 6.4 (6.3-8.2) g/dL Albumin 3.2 L (3.5-5.0) g/dL Urine Color [place] Urine Appearance Clear (Clear) Urine pH 6.0 (5.0-8.0) Ur Specific [place] 1.006 (1.001-1.035) Urine Protein Negative (Negative) Urine Glucose (UA) Negative (Negative) Urine Ketones Negative (Negative) Urine Blood Trace H (Negative) Urine Nitrite Positive (Negative) Urine Bilirubin Negative (Negative) Urine Urobilinogen <2.0 (<2.0) mg/dL Ur Leukocyte Esterase Negative (Negative) Urine RBC <1 (0-5) /hpf Urine WBC 1 (0-5) /hpf Disposition Is patient prescribed a controlled substance at d/c from ED?: No Time of Disposition: 23:43 Decision to Admit Reason: Admit from EC Decision Date: 03/26/20 Decision Time: 00:53 <Anastasia Pacheco - Last Filed: 03/26/20 01:35> <Chance Roche - Last Filed: 03/26/20 08:40> Clinical Impression: Urinary retention, Leukocytosis, Prostate abscess Disposition: ADMITTED IP TO THIS HOSP Condition: Stable
[2020-03-25 23:34] LABS: Appearance,Urine Clear (Clear); Basophils # (A) 0.2 k/uL (0-0.2); Basophils % (A) 1 %; Bilirubin,Urine Negative (Negative); Blood,Urine Trace (Negative); Color,Urine Brown; Eosinophils # (A) 0.5 k/uL (0-0.7); Eosinophils % (A) 2 %; Glucose,Urine (UA) Negative (Negative); HCT 39.8 % (39.0-53.0); HGB 13.3 gm/dL (13.0-17.5); Ketones,Urine Negative (Negative); Leukocyte Esterase,Urine Negative (Negative); Lymphocytes # (A) 1.1 k/uL (1.0-4.8); Lymphocytes % (A) 5 %; MCH 29.9 pg (25.0-35.0); MCHC 33.3 g/dL (31.0-37.0); MCV 89.8 fL (80.0-100.0); Mean Platelet Volume 7.3; Monocytes # (A) 1.3 k/uL (0-1.0); Monocytes % (A) 6 %; Neutrophils # (A) 18.6 k/uL (1.3-7.7); Neutrophils % (A) 85 %; Nitrite,Urine Positive (Negative); Platelet Count 262 k/uL (150-450); Protein,Urine Negative (Negative); RBC 4.43 m/uL (4.30-5.90); RBC,Urine <1 /hpf (0-5); RDW 13.1 % (11.5-15.5); Specific Gravity,Urine 1.006 (1.001-1.035); Urobilinogen,Urine <2.0 mg/dL (<2.0); WBC 21.9 k/uL (3.8-10.6); WBC,Urine 1 /hpf (0-5)
[2020-03-25 23:44] LABS: ALT 20 U/L (4-49); AST 34 U/L (17-59); African American GFR (CKD) >90 (>60 ml/min/1.73 sqM); Albumin 3.2 g/dL (3.5-5.0); Alkaline Phosphatase 104 U/L (38-126); Anion Gap 9 mmol/L; Blood Urea Nitrogen 17 mg/dL (9-20); Calcium 8.6 mg/dL (8.4-10.2); Carbon Dioxide 22 mmol/L (22-30); Chloride 101 mmol/L (98-107); Glucose 140 mg/dL (74-99); Non-African American GFR(CKD) 78 (>60 ml/min/1.73 sqM); Potassium 3.6 mmol/L (3.5-5.1); Sodium 132 mmol/L (137-145); Total Bilirubin 0.6 mg/dL (0.2-1.3); Total Protein 6.4 g/dL (6.3-8.2)
[2020-03-26] MEDS ORDERED: SODIUM CHLORIDE 0.9% 500 ML 500 ML IV ONE (00:07)
--- NOTE | 2020-03-26 00:27 | CT ---
EXAM: CT Abdomen and Pelvis With Intravenous Contrast CLINICAL HISTORY: white count, recent surgery TECHNIQUE: Axial computed tomography images of the abdomen and pelvis with intravenous contrast. CTDI is 27.17 mGy and DLP is 1305 mGy-cm. This CT exam was performed using one or more of the following dose reduction techniques: automated exposure control, adjustment of the mA and/or kV according to patient size, and/or use of iterative reconstruction technique. COMPARISON: 10/29/16 FINDINGS: Lung bases: No significant abnormality. Mediastinum: Small hiatal hernia. ABDOMEN: Liver: No significant abnormality. Gallbladder and bile ducts: No significant abnormality. No calcified stones. Pancreas: No significant abnormality. Spleen: No significant abnormality. Adrenals: No significant abnormality. Kidneys and ureters: Small parapelvic renal cysts. No hydronephrosis. Stomach and bowel: No significant abnormality. PELVIS: Appendix: No findings to suggest acute appendicitis. Bladder: A Myers catheter is present in the underdistended urinary bladder. Reproductive: Enlarged prostate gland. Indeterminate 2.6 cm focus of hypoattenuation in the right prostate gland. ABDOMEN and PELVIS: Intraperitoneal space: No free air. Bones/joints: No acute osseous abnormality. Degenerative changes of the spine. Soft tissues: Small fat-containing periumbilical and left inguinal hernias. Small right inguinal hernia containing a small amount of ascites and trace gas. Trace gas is present in the right anterior abdominal wall. Vasculature: Aortic atherosclerosis. No abdominal aortic aneurysm. Lymph nodes: No significant abnormality. IMPRESSION: 1. Indeterminate 2.6 cm focus of hypoattenuation in the right prostate gland may represent an abscess, in the appropriate clinical setting. 2. Trace gas in the right anterior abdominal wall and within a small right inguinal hernia are likely postsurgical.
[2020-03-26] MEDS ORDERED: NALOXONE 0.4 MG/ML 1 ML VIAL IV PRN (01:27)
[2020-03-26] MEDS: SODIUM CHLORIDE 0.9% 1,000 ML IV SCH ×3 (01:46→17:44)
[2020-03-26] MEDS ORDERED: IBUPROFEN 600 MG TAB PO PRN (07:45)
[2020-03-26] MEDS ORDERED: ACETAMINOPHEN TAB 325 MG TAB PO PRN (07:45)
[2020-03-26] MEDS ORDERED: FLUTICASONE 50MCG/SPRAY NASAL 16GM EA NOSTRIL PRN (07:45)
[2020-03-26] MEDS ORDERED: HYDROCORTISONE 2.5% RECTAL CREAM 30 GM TUBE RECTAL PRN (07:45)
[2020-03-26] MEDS ORDERED: PANTOPRAZOLE 40 MG TABLET PO SCH (08:00)
--- NOTE | 2020-03-26 08:21 | P.GSCN ---
History of Present Illness Consult date: 03/26/20 History of present illness: 70 yo male who underwent a ral hernia repair by Dr Barton last week He went into retention post op I removed his catheter on . He returned thursday and was emptying his bladder but was c/o dysuria. A culture was obtained and he was started on Bactrim DS. He wnet to the er on Thursday. HIs bladder was empty but his wbc were 04528. He was switched to augmentin. He returned to the [place] [address] but had 450 ml retention. HIs urine c&s from thursday is growing pseudomonas. He was given rocephin last nite which was tested against the pseudomonas. He had a ct scan that showed prostatic inflammation, possible abscess, inflammation and air in the hernia repair. Review of Systems - Constitutional Reports anorexia - Genitourinary Reports dysuria, Reports urinary frequency, Reports urinary retention - Psychiatric Reports anxiety Past Medical History Past Medical History: Diabetes Mellitus, GERD/Reflux, Hypertension History of Any Multi-Drug Resistant Organisms: None Reported Past Surgical History: Hernia Repair Additional Past Surgical History / Comment(s): left knee, Inguinal hernia Past Psychological History: No Psychological Hx Reported Smoking Status: Never smoker Past Alcohol Use History: None Reported Past Drug Use History: None Reported Medications and Allergies Home Medications Medication Instructions Recorded Confirmed Type Fluticasone Nasal [place] [Flonase 1 - 2 spr EA NOSTRIL DAILY PRN 10/29/16 03/26/20 History Nasal [place]] Benazepril HCl 40 mg PO DAILY 03/16/20 03/26/20 History Hydrocortisone Cream 1 applic TOPICAL DAILY PRN 03/16/20 03/26/20 History [Hydrocortisone 2.5% Cream] Lansoprazole 30 mg PO Q48H 03/16/20 03/26/20 History amLODIPine [Norvasc] 10 mg PO DAILY 03/16/20 03/26/20 History Docusate [Colace] 100 mg PO BID #20 capsule 03/20/20 03/26/20 Rx Ibuprofen [Motrin] 600 mg PO Q6HR PRN #40 tab 03/20/20 03/26/20 Rx oxyCODONE HCL [OxyIR] 5 mg PO Q4H PRN 3 Days #18 tab 03/20/20 03/26/20 Rx Amoxic-Pot Clav 875-125Mg 1 tab PO Q12HR 10 Days #20 tab 03/24/20 03/26/20 Rx [Augmentin 875-125] Acetaminophen Tab [Tylenol] 650 mg PO Q6H PRN 03/26/20 03/26/20 History Tamsulosin [Flomax] 0.4 mg PO DAILY 03/26/20 03/26/20 History Allergies Allergy/AdvReac Type Severity Reaction Status Date / Time No Known Allergies Allergy Verified 03/26/20 07:36 Surgical - Exam Vital Signs Temp Pulse Resp BP Pulse Ox 99 F 100 22 123/68 97 03/25/20 22:08 03/25/20 22:08 03/25/20 22:08 03/25/20 22:08 03/25/20 22:08 - General anxious with mild distress. well developed, well nourished - Eyes PERRL - Neck trachea midline - Respiratory normal expansion, normal respiratory effort - Cardiovascular Rhythm: regular - Abdomen Abdomen: soft, non tender - Genitourinary indwelling catheter. Results - Labs 03/25/20 23:06 03/25/20 23:06 Abnormal Lab Results - Last 24 Hours (Table) 03/25/20 03/25/20 03/25/20 Range/Units 23:06 23:06 23:06 WBC 21.9 H (3.8-10.6) k/uL Neutrophils # 18.6 H (1.3-7.7) k/uL Monocytes # 1.3 H (0-1.0) k/uL Sodium 132 L (137-145) mmol/L Glucose 140 H (74-99) mg/dL Albumin 3.2 L (3.5-5.0) g/dL Urine Blood Trace H (Negative) Diabetes panel 03/25/20 Range/Units 23:06 Sodium 132 L (137-145) mmol/L Potassium 3.6 (3.5-5.1) mmol/L Chloride 101 (98-107) mmol/L Carbon Dioxide 22 (22-30) mmol/L BUN 17 (9-20) mg/dL Creatinine 0.96 (0.66-1.25) mg/dL Glucose 140 H (74-99) mg/dL Calcium 8.6 (8.4-10.2) mg/dL AST 34 (17-59) U/L ALT 20 (4-49) U/L Alkaline Phosphatase 104 (38-126) U/L Total Protein 6.4 (6.3-8.2) g/dL Albumin 3.2 L (3.5-5.0) g/dL Calcium panel 03/25/20 Range/Units 23:06 Calcium 8.6 (8.4-10.2) mg/dL Albumin 3.2 L (3.5-5.0) g/dL Pituitary panel 03/25/20 Range/Units 23:06 Sodium 132 L (137-145) mmol/L Potassium 3.6 (3.5-5.1) mmol/L Chloride 101 (98-107) mmol/L Carbon Dioxide 22 (22-30) mmol/L BUN 17 (9-20) mg/dL Creatinine 0.96 (0.66-1.25) mg/dL Glucose 140 H (74-99) mg/dL Calcium 8.6 (8.4-10.2) mg/dL Adrenal panel 03/25/20 Range/Units 23:06 Sodium 132 L (137-145) mmol/L Potassium 3.6 (3.5-5.1) mmol/L Chloride 101 (98-107) mmol/L Carbon Dioxide 22 (22-30) mmol/L BUN 17 (9-20) mg/dL Creatinine 0.96 (0.66-1.25) mg/dL Glucose 140 H (74-99) mg/dL Calcium 8.6 (8.4-10.2) mg/dL Total Bilirubin 0.6 (0.2-1.3) mg/dL AST 34 (17-59) U/L ALT 20 (4-49) U/L Alkaline Phosphatase 104 (38-126) U/L Total Protein 6.4 (6.3-8.2) g/dL Albumin 3.2 L (3.5-5.0) g/dL - Imaging CT scan - abdomen: report reviewed, image reviewed CT scan - pelvis: report reviewed, image reviewed Assessment and Plan Assessment: Impression: POst op uti. Post op urine retention Plan: continue with culture specific ab. Consultation with Dr Barton
[2020-03-26] MEDS: amLODIPine 10 MG TAB PO SCH (08:26)
[2020-03-26] MEDS: lisinopriL 20 MG TAB PO SCH (08:26)
[2020-03-26] MEDS: DOCUSATE 100 MG CAP PO SCH ×2 (08:27→20:11)
[2020-03-26] MEDS: TAMSULOSIN 0.4 MG CAP.ER.24H PO SCH (08:27)
[2020-03-26] MEDS: LEVOFLOXACIN 500MG-D5W PMX 500 MG in DEXTROSE/WATER 1 100ML.BAG IVPB SCH (11:48)
[2020-03-26] MEDS: CHOLESTYRAMINE (WITH SUGAR) 4 GM PACKET PO SCH ×3 (12:01→21:38)
--- NOTE | 2020-03-26 12:54 | P.GSCN ---
History of Present Illness Consult date: 03/26/20 History of present illness: CHIEF COMPLAINT: Urine retention HISTORY OF PRESENT ILLNESS: This is a 74-year-old male who is status post right inguinal hernia repair on 03/20/2020. Also history of diabetes, GERD and hypertension. Patient had postoperative urinary retention on 03/20/2020 and return to the ER where they placed a Myers catheter. Patient followed up with urology for Myers catheter removal. Patient's then again had a right issues with urinary frequency and burning with urination he had a temp of 100.4 he was discharged home with antibiotics for UTI. Patient presents back to the emergency room with complaints of urinary retention fevers of 100.4. In the ER he had retained urine of 400 mL. He had Myers catheter inserted. Computed tomography scan of the abdomen and pelvis indeterminate 2.6 cm focus of hypoattenuation in the right prostate gland may represent an abscess. Trace gas in the right anterior abdominal wall and within a small right inguinal hernia likely postsurgical. Patient denies any nausea or vomiting. He had 2 episodes of diarrhea today. Patient denies any pain at the surgical sites. Denies any drainage from surgical. PAST MEDICAL HISTORY: See list. PAST SURGICAL HISTORY: See list. MEDICATIONS: See list. ALLERGIES: See list. SOCIAL HISTORY: No illicit drug use. REVIEW OF SYSTEMS: CONSTITUTIONAL: Denies fever or chills. HEENT: Denies blurred vision, vision changes, or eye pain. Denies hemoptysis CARDIOVASCULAR: Denies chest pain or pressure. RESPIRATORY: No shortness of breath. GASTROINTESTINAL: See HPI for pertinent findings HEMATOLOGIC: Denies bleeding disorders. GENITOURINARY: Denies any blood in urine or increased urinary frequency. SKIN: Denies pruitis. Denies rash. PHYSICAL EXAM: VITAL SIGNS: Reviewed GENERAL: Well-developed in no acute distress. HEENT: No sclera icterus. Extraocular movements grossly intact. Moist buccal mucosa. Head is atraumatic, normocephalic. No nasal drainage. ABDOMEN: Soft. Nondistended. Nontender. Surgical sites clean dry and intact. Patient has Myers catheter in place. Urine is dark orange in color NEUROLOGIC: Alert and oriented. Cranial nerves II through XII grossly intact. LABORATORY DATA: WBC 21.9 Hgb 13.3 creatinine 0.96 C. diff negative UA trace blood IMAGING: Computed tomography scan of the abdomen and pelvis indeterminate 2.6 cm focus of hypoattenuation in the right prostate gland may represent an abscess. Trace gas in the right anterior abdominal wall and within a small right inguinal hernia likely postsurgical. ASSESSMENT: 1. Possible right prostate gland abscess 2. Postoperative Urinary retention 3. Postoperative UTI 4. Status post right inguinal hernia repair 03/20/2020 PLAN: -Continue antibiotics -Continue IV fluids -Continue supportive care -Patient being followed by urology -No surgical intervention planned -We'll continue to monitor patient Thank you for this consultation Physician Hematology Supervisor note has been reviewed by physician. Signing provider agrees with the documented findings, assessment, and plan of care. Past Medical History Past Medical History: Diabetes Mellitus, GERD/Reflux, Hypertension History of Any Multi-Drug Resistant Organisms: None Reported Past Surgical History: Hernia Repair Additional Past Surgical History / Comment(s): left knee, Inguinal hernia Past Psychological History: No Psychological Hx Reported Smoking Status: Never smoker Past Alcohol Use History: None Reported Past Drug Use History: None Reported Medications and Allergies Home Medications Medication Instructions Recorded Confirmed Type Fluticasone Nasal [place] [Flonase 1 - 2 spr EA NOSTRIL DAILY PRN 10/29/16 03/26/20 History Nasal [place]] Benazepril HCl 40 mg PO DAILY 03/16/20 03/26/20 History Hydrocortisone Cream 1 applic TOPICAL DAILY PRN 03/16/20 03/26/20 History [Hydrocortisone 2.5% Cream] Lansoprazole 30 mg PO Q48H 03/16/20 03/26/20 History amLODIPine [Norvasc] 10 mg PO DAILY 03/16/20 03/26/20 History Docusate [Colace] 100 mg PO BID #20 capsule 03/20/20 03/26/20 Rx Ibuprofen [Motrin] 600 mg PO Q6HR PRN #40 tab 03/20/20 03/26/20 Rx oxyCODONE HCL [OxyIR] 5 mg PO Q4H PRN 3 Days #18 tab 03/20/20 03/26/20 Rx Amoxic-Pot Clav 875-125Mg 1 tab PO Q12HR 10 Days #20 tab 03/24/20 03/26/20 Rx [Augmentin 875-125] Acetaminophen Tab [Tylenol] 650 mg PO Q6H PRN 03/26/20 03/26/20 History Tamsulosin [Flomax] 0.4 mg PO DAILY 03/26/20 03/26/20 History Allergies Allergy/AdvReac Type Severity Reaction Status Date / Time No Known Allergies Allergy Verified 03/26/20 07:36 Surgical - Exam Vital Signs Temp Pulse Resp BP Pulse Ox 99 F 100 22 123/68 97 03/25/20 22:08 03/25/20 22:08 03/25/20 22:08 03/25/20 22:08 03/25/20 22:08 Results - Labs 03/25/20 23:06 03/25/20 23:06 Abnormal Lab Results - Last 24 Hours (Table) 03/25/20 03/25/20 03/25/20 Range/Units 23:06 23:06 23:06 WBC 21.9 H (3.8-10.6) k/uL Neutrophils # 18.6 H (1.3-7.7) k/uL Monocytes # 1.3 H (0-1.0) k/uL Sodium 132 L (137-145) mmol/L Glucose 140 H (74-99) mg/dL Albumin 3.2 L (3.5-5.0) g/dL Urine Blood Trace H (Negative) Diabetes panel 03/25/20 Range/Units 23:06 Sodium 132 L (137-145) mmol/L Potassium 3.6 (3.5-5.1) mmol/L Chloride 101 (98-107) mmol/L Carbon Dioxide 22 (22-30) mmol/L BUN 17 (9-20) mg/dL Creatinine 0.96 (0.66-1.25) mg/dL Glucose 140 H (74-99) mg/dL Calcium 8.6 (8.4-10.2) mg/dL AST 34 (17-59) U/L ALT 20 (4-49) U/L Alkaline Phosphatase 104 (38-126) U/L Total Protein 6.4 (6.3-8.2) g/dL Albumin 3.2 L (3.5-5.0) g/dL Calcium panel 03/25/20 Range/Units 23:06 Calcium 8.6 (8.4-10.2) mg/dL Albumin 3.2 L (3.5-5.0) g/dL Pituitary panel 03/25/20 Range/Units 23:06 Sodium 132 L (137-145) mmol/L Potassium 3.6 (3.5-5.1) mmol/L Chloride 101 (98-107) mmol/L Carbon Dioxide 22 (22-30) mmol/L BUN 17 (9-20) mg/dL Creatinine 0.96 (0.66-1.25) mg/dL Glucose 140 H (74-99) mg/dL Calcium 8.6 (8.4-10.2) mg/dL Adrenal panel 03/25/20 Range/Units 23:06 Sodium 132 L (137-145) mmol/L Potassium 3.6 (3.5-5.1) mmol/L Chloride 101 (98-107) mmol/L Carbon Dioxide 22 (22-30) mmol/L BUN 17 (9-20) mg/dL Creatinine 0.96 (0.66-1.25) mg/dL Glucose 140 H (74-99) mg/dL Calcium 8.6 (8.4-10.2) mg/dL Total Bilirubin 0.6 (0.2-1.3) mg/dL AST 34 (17-59) U/L ALT 20 (4-49) U/L Alkaline Phosphatase 104 (38-126) U/L Total Protein 6.4 (6.3-8.2) g/dL Albumin 3.2 L (3.5-5.0) g/dL
--- NOTE | 2020-03-26 15:34 | P.PN ---
Subjective Progress Note Date: 03/26/[address] scan with the radiology dept. The questions is whether the abnormality in the prostate is actually intra/post op bleeding that collected around the bladder neck and or prostate or a prostatic abscess. He has no urologic history which would make the latter problem unlikely unless perhaps there was a traumatic catheterization. We will follow with you I would leave the catheter in palce for now Objective - Vital Signs Vital signs: Vital Signs Temp 98.6 F 03/26/20 07:19 Pulse 74 03/26/20 07:19 Resp 16 03/26/20 07:19 BP 117/44 03/26/20 07:19 Pulse Ox 97 03/26/20 07:19 Intake & Output 03/25/20 03/26/20 03/26/20 18:59 06:59 18:59 Weight 87.997 kg - Labs CBC & Chem 7: 03/25/20 23:06 03/25/20 23:06 Labs: Abnormal Lab Results - Last 24 Hours (Table) 03/25/20 03/25/20 03/25/20 Range/Units 23:06 23:06 23:06 WBC 21.9 H (3.8-10.6) k/uL Neutrophils # 18.6 H (1.3-7.7) k/uL Monocytes # 1.3 H (0-1.0) k/uL Sodium 132 L (137-145) mmol/L Glucose 140 H (74-99) mg/dL Albumin 3.2 L (3.5-5.0) g/dL Urine Blood Trace H (Negative)
--- NOTE | 2020-03-26 18:17 | P.HPIM ---
History of Present Illness H&P Date: 03/26/20 Chief Complaint: Retention of urine 74-year-old male patient well known to the practice presented emergency room via ambulance for complaints of urinary retention with lower abdominal discomfort. He is status post right inguinal hernia repair that was completed on 03/20/2020. Patient was noted to have postoperative urinary retention and a catheter was reinserted on 03/20/2020. On , 03/22/2020, patient followed up with urology and the catheter was removed at that time. Shortly after he started to notice the same symptoms of lower abdominal discomfort, and urinary retention with fevers of 100.4. With the evaluation in the emergency room he was found to have 400 mL of urine retained in for catheter was reinserted. A CT scan of the abdomen and pelvis showed indeterminate 2.6 cm focus of hypoattenuation in the right prostate and that may represent an abscess. There is trace gas in the right anterior abdominal wall and within a small right inguinal hernia likely postsurgical. Patient denies any nausea and vomiting and is noted to have 2 episodes of diarrhea today. Patient has known history of diabetes myelitis, GERD\reflux, hypertension and has never been a smoker. Currently the patient denies pain, chills, fatigue, myalgia, headache, chest pain, shortness of breath or difficulty breathing, blood in urine, abdominal discomfort, or nausea\vomit ing. Review of Systems Constitutional: Reports as per HPI Ears, nose, mouth and throat: Reports as per HPI Cardiovascular: Reports as per HPI Respiratory: Reports as per HPI Gastrointestinal: Reports as per HPI, Reports diarrhea Genitourinary: Reports as per HPI Musculoskeletal: Reports as per HPI Integumentary: Reports as per HPI Neurological: Reports as per HPI Psychiatric: Reports as per HPI Endocrine: Reports as per HPI Hematologic/Lymphatic: Reports as per HPI Allergic/Immunologic: Reports as per HPI Past Medical History Past Medical History: Diabetes Mellitus, GERD/Reflux, Hypertension History of Any Multi-Drug Resistant Organisms: None Reported Past Surgical History: Hernia Repair Additional Past Surgical History / Comment(s): left knee, Inguinal hernia Past Psychological History: No Psychological Hx Reported Smoking Status: Never smoker Past Alcohol Use History: None Reported Past Drug Use History: None Reported Medications and Allergies Home Medications Medication Instructions Recorded Confirmed Type Fluticasone Nasal [place] [Flonase 1 - 2 spr EA NOSTRIL DAILY PRN 10/29/16 03/26/20 History Nasal [place]] Benazepril HCl 40 mg PO DAILY 03/16/20 03/26/20 History Hydrocortisone Cream 1 applic TOPICAL DAILY PRN 03/16/20 03/26/20 History [Hydrocortisone 2.5% Cream] Lansoprazole 30 mg PO Q48H 03/16/20 03/26/20 History amLODIPine [Norvasc] 10 mg PO DAILY 03/16/20 03/26/20 History Docusate [Colace] 100 mg PO BID #20 capsule 03/20/20 03/26/20 Rx Ibuprofen [Motrin] 600 mg PO Q6HR PRN #40 tab 03/20/20 03/26/20 Rx oxyCODONE HCL [OxyIR] 5 mg PO Q4H PRN 3 Days #18 tab 03/20/20 03/26/20 Rx Amoxic-Pot Clav 875-125Mg 1 tab PO Q12HR 10 Days #20 tab 03/24/20 03/26/20 Rx [Augmentin 875-125] Acetaminophen Tab [Tylenol] 650 mg PO Q6H PRN 03/26/20 03/26/20 History Tamsulosin [Flomax] 0.4 mg PO DAILY 03/26/20 03/26/20 History Allergies Allergy/AdvReac Type Severity Reaction Status Date / Time No Known Allergies Allergy Verified 03/26/20 07:36 Physical Exam Vitals: Vital Signs Temp Pulse Pulse Resp BP BP Pulse Ox 03/26/20 14:15 97.9 F 88 17 102/62 96 03/26/20 07:19 98.6 F 74 16 117/44 97 03/26/20 04:00 16 03/26/20 03:30 97.9 F 85 16 125/76 03/26/20 03:20 98.0 F 82 18 117/67 96 03/26/20 00:58 55 L 18 110/67 95 03/25/20 22:08 99 F 100 22 123/68 97 Intake and Output 03/26/20 03/26/20 03/26/20 06:59 14:59 22:59 Intake Total 180 Balance 180 Intake: Oral 180 Other: Weight 87.997 kg GENERAL: Well-appearing, well-nourished and in no acute distress. HEAD: Atraumatic, normocephalic. EYES: Pupils equal round and reactive to light, extraocular movements intact, sclera anicteric, conjunctiva are normal. ENT:nares patent, oropharynx clear without exudates. Moist mucous membranes. NECK: Normal range of motion, supple without lymphadenopathy or JVD, no thyromegaly LUNGS: Breath sounds clear to auscultation bilaterally and equal. No wheezes rales or rhonchi. HEART: Regular rate and rhythm without murmurs, rubs or gallops.S1S2 Normal ABDOMEN: Soft, nontender, normoactive bowel sounds. No guarding, no rebound. No masses appreciated. EXTREMITIES: Normal range of motion, no pitting or edema. No clubbing or cyanosis. NEUROLOGICAL: Cranial nerves II through XII grossly intact. Normal speech, normal gait. PSYCH: Normal mood, normal affect. SKIN: Warm, Dry, normal turgor, no rashes or lesions noted. Surgical site clean dry and intact Genitourinary: Myers catheter in place with dark orange urine. Results CBC & Chem 7: 03/25/20 23:06 03/25/20 23:06 Labs: Abnormal Lab Results - Last 24 Hours (Table) 03/25/20 03/25/20 03/25/20 Range/Units 23:06 23:06 23:06 WBC 21.9 H (3.8-10.6) k/uL Neutrophils # 18.6 H (1.3-7.7) k/uL Monocytes # 1.3 H (0-1.0) k/uL Sodium 132 L (137-145) mmol/L Glucose 140 H (74-99) mg/dL Albumin 3.2 L (3.5-5.0) g/dL Urine Blood Trace H (Negative) Thrombosis Risk Factor Assmnt - Choose All That Apply Each Factor Represents 1 point: History of prior major surgery (<1month) Each Risk Factor Represents 2 Points: Age 61-74 years Thrombosis Risk Factor Assessment Total Risk Factor Score: 3 Thrombosis Risk Factor Assessment Level: Moderate Risk Assessment and Plan (1) Leukocytosis Current Visit: Yes Status: Acute Code(s): D72.829 - ELEVATED WHITE BLOOD CELL COUNT, UNSPECIFIED SNOMED Code(s): 203790906 (2) Prostate abscess Current Visit: Yes Status: Acute Code(s): N41.2 - ABSCESS OF PROSTATE SNOMED Code(s): 9350177 (3) Urinary retention Current Visit: Yes Status: Acute Code(s): R33.9 - RETENTION OF URINE, UNSPECIFIED SNOMED Code(s): 313656756 (4) Cystitis Current Visit: No Status: Acute Code(s): N30.90 - CYSTITIS, UNSPECIFIED WI THOUT HEMATURIA SNOMED Code(s): 46172429 (5) Postoperative urinary retention Current Visit: No Status: Acute Code(s): N99.89 - OTH POSTPROCEDURAL COMPLICATIONS AND DISORDERS OF SYS; R33.8 - OTHER RETENTION OF URINE SNOMED Code(s): 823689689 (6) History of herniorrhaphy Current Visit: No Status: Acute Code(s): Z98.890 - OTHER SPECIFIED POSTPROCEDURAL STATES; Z87.19 - PERSONAL HISTORY OF OTHER DISEASES OF THE DIGESTIVE SYSTEM SNOMED Code(s): 33155684990420 Plan: 1. Continue antibiotics (levofloxacin). 2. Maintain IV fluids. 3. Continue to monitor vitals and labs and treat accordingly. 4. Patient being followed by surgery with no intervention planned at this time. 5. Patient being followed by urology. 6. Continue with Myers catheter at this time. 7. Pneumatic compression sleeve for DVT prophylaxis. 8. Continue Protonix for GERD prophylaxis. 9. Patient on a regular diet at this time. 10. Appropriate home medications of been reordered for inpatient. 11. We'll reassess patient again tomorrow. Time with Patient: Greater than 30
[2020-03-27] MEDS: SODIUM CHLORIDE 0.9% 1,000 ML IV SCH ×2 (00:50→10:10)
[2020-03-27 06:22] LABS: Basophils % (A) 0 %; Eosinophils # (A) 0.5 k/uL (0-0.7); Eosinophils % (A) 4 %; HCT 36.9 % (39.0-53.0); HGB 12.4 gm/dL (13.0-17.5); Lymphocytes # (A) 1.1 k/uL (1.0-4.8); Lymphocytes % (A) 9 %; MCH 30.5 pg (25.0-35.0); MCHC 33.5 g/dL (31.0-37.0); MCV 91.1 fL (80.0-100.0); Monocytes # (A) 0.8 k/uL (0-1.0); Monocytes % (A) 7 %; Neutrophils % (A) 78 %; Platelet Count 287 k/uL (150-450); RBC 4.05 m/uL (4.30-5.90); RDW 13.3 % (11.5-15.5); WBC 11.6 k/uL (3.8-10.6)
[2020-03-27 07:47] VITALS: BP 125/73; PULSE 83; RESP 16; TEMP 97.7
--- NOTE | 2020-03-27 08:36 | P.DS ---
Providers Date of admission: 03/26/20 02:55 Expected date of discharge: 03/27/20 Attending physician: Stanislaw Rodriguez Consults: 03/26/20 01:27 Consult Physician Routine Consulting Provider: Jon Vásquez Consult Reason/Comments: possible prostate abscess Do you want consulting provider notified?: Yes, Notify in am 03/26/20 07:50 Consult Physician Routine Consulting Provider: Carlos Barton Consult Reason/Comments: known , recent surgery, current prostate abscess Do you want consulting provider notified?: Yes Primary care physician: Ivan Hilton - Discharge Diagnosis(es) (1) Leukocytosis Current Visit: Yes Status: Acute (2) Prostate abscess Current Visit: Yes Status: Acute (3) Urinary retention Current Visit: Yes Status: Acute (4) Cystitis Current Visit: No Status: Acute (5) Postoperative urinary retention Current Visit: No Status: Acute (6) History of herniorrhaphy Current Visit: No Status: Acute Patient Condition at Discharge: Stable Plan - Discharge Summary Discharge Rx Participant: Yes New Discharge Prescriptions: New Levofloxacin [Levaquin] 750 mg PO DAILY 14 Days #14 tab Cholestyramine (with Sugar) [Questran Packet] 4 gm PO QID #0 packet Continue Fluticasone Nasal [place] [Flonase Nasal [place]] 1 - 2 spr EA NOSTRIL DAILY PRN PRN Reason: Allergy Symptoms Lansoprazole 30 mg PO Q48H amLODIPine [Norvasc] 10 mg PO DAILY Benazepril HCl 40 mg PO DAILY oxyCODONE HCL [OxyIR] 5 mg PO Q4H PRN 3 Days #18 tab PRN Reason: Pain Tamsulosin [Flomax] 0.4 mg PO DAILY Acetaminophen Tab [Tylenol] 650 mg PO Q6H PRN PRN Reason: Pain Discontinued Hydrocortisone Cream [Hydrocortisone 2.5% Cream] 1 applic TOPICAL DAILY PRN PRN Reason: Hemorrhoids Docusate [Colace] 100 mg PO BID #20 capsule Ibuprofen [Motrin] 600 mg PO Q6HR PRN #40 tab PRN Reason: Pain Amoxic-Pot Clav 875-125Mg [Augmentin 875-125] 1 tab PO Q12HR 10 Days #20 tab Discharge Medication List Fluticasone Nasal [place] [Flonase Nasal [place]] 1 - 2 spr EA NOSTRIL DAILY PRN 07 /26/17 [History] Benazepril HCl 40 mg PO DAILY 03/16/20 [History] Lansoprazole 30 mg PO Q48H 03/16/20 [History] amLODIPine [Norvasc] 10 mg PO DAILY 03/16/20 [History] oxyCODONE HCL [OxyIR] 5 mg PO Q4H PRN 3 Days #18 tab 03/20/20 [Rx] Acetaminophen Tab [Tylenol] 650 mg PO Q6H PRN 03/26/20 [History] Tamsulosin [Flomax] 0.4 mg PO DAILY 03/26/20 [History] Cholestyramine (with Sugar) [Questran Packet] 4 gm PO QID #0 packet 03/27/20 [Rx] Levofloxacin [Levaquin] 750 mg PO DAILY 14 Days #14 tab 03/27/20 [Rx] Follow up Appointment(s)/Referral(s): Ivan Hilton MD [Primary Care Provider] - 1-2 days Jon Vásquez MD [STAFF PHYSICIAN] - 1 Week Patient Instructions/Handouts: Myers Catheter Placement and Care (GEN) Discharge Disposition: HOME SELF-CARE Plan of Treatment: Patient will follow up with PCP in 1-2 days. Patient will follow up with urology in 1 week. He will maintain catheter until his follow-up appointment with urology. We'll notify office for noted blood in the urine, fevers, or resurfacing of lower abdominal pain.
[2020-03-27] MEDS: amLODIPine 10 MG TAB PO SCH (09:52)
[2020-03-27] MEDS: lisinopriL 20 MG TAB PO SCH (09:52)
[2020-03-27] MEDS: DOCUSATE 100 MG CAP PO SCH (09:52)
[2020-03-27] MEDS: TAMSULOSIN 0.4 MG CAP.ER.24H PO SCH (09:52)
[2020-03-27] MEDS: CHOLESTYRAMINE (WITH SUGAR) 4 GM PACKET PO SCH (09:52)
[2020-03-27] MEDS: LEVOFLOXACIN 500MG-D5W PMX 500 MG in DEXTROSE/WATER 1 100ML.BAG IVPB SCH (10:10)
[2020-03-27 10:23] LABS: African American GFR (CKD) 85.6 (60.0-200.0); Anion Gap -0.3 mmol/L (4.00-12.00); Calcium 8.4 mg/dL (8.7-10.3); Carbon Dioxide 22.3 mmol/L (21.6-31.8); Non-African American GFR(CKD) 73.8 (60.0-200.0); Potassium 4.1 mmol/L (3.5-5.5)
--- NOTE | 2020-03-27 21:35 | P.PN ---
Subjective Progress Note Date: 03/27/20 No acute overnight symptoms, his urinary symptoms have improved. Denies any fever/chills. His WBC trending down to 11.8 from 28. Objective - Vital Signs Vital signs: Vital Signs Temp 97.7 F 03/27/20 07:46 Pulse 83 03/27/20 07:46 Resp 16 03/27/20 08:00 BP 125/73 03/27/20 07:46 Pulse Ox 97 03/27/20 07:46 Intake & Output 03/27/20 03/27/20 03/28/20 06:59 18:59 06:59 Intake Total 900 Balance 900 Intake: Intake, IV Titration 900 Amount Sodium Chloride 0.9% 1, 900 000 ml @ 130 mls/hr IV . Q7H42M ON LICENSE OF [facility] Rx#:[id number] Other: Voiding Method Indwelling Catheter - Constitutional General appearance: Present: no acute distress - EENT Eyes: Present: EOMI, normal appearance - Genitourinary Genitourinary Comment(s): dent draining clear yellow urine - Psychiatric Psychiatric: Present: A&O x's 3 - Labs CBC & Chem 7: 03/27/20 05:33 03/27/20 05:33 Labs: Abnormal Lab Results - Last 24 Hours (Table) 03/27/20 03/27/20 Range/Units 05:33 05:33 WBC 11.6 H (3.8-10.6) k/uL RBC 4.05 L (4.30-5.90) m/uL Hgb 12.4 L (13.0-17.5) gm/dL Hct 36.9 L (39.0-53.0) % Neutrophils # 9.0 H (1.3-7.7) k/uL Chloride 119 H (96-109) mmol/L Anion Gap -0.30 L (4.00-12.00) mmol/L Glucose 128 H (70-110) mg/dL Calcium 8.4 L (8.7-10.3) mg/dL Assessment and Plan Assessment: 74 yo male who underwent a hernia repair by Dr Barton. Developed retention and UTI post op initially placed n Bactrim DS then he was switched to augmentin. [place] returned [place] the [place] [address] but had 450 ml retention. HIs urine c&s from thursday is growing pseudomonas. He had a ct scan that showed prostatic inflammation, possible abscess, inflammation and air in the hernia repair. His symptoms are not consistent with a prostatic abscess. His WBC is down to 11.8 Plan: -Ok for discharge from urology standpoint, will need abx for 14 days. Can be discharge on Levaquin. Can be discharge with dent, can f/u in one week for TOV
== END 2020-03-27 10:54 | disposition home or self-care (01) | DRG 863 ==
LOC: EC 22:07 → 5NMEDONC 03-26 02:55
PROVIDERS: ADMIT Family Medicine; ATTEND Family Medicine
DX: T81.42XA Infection following a procedure, deep incisional surgical site, initial encounter (principal); N41.2 Abscess of prostate; E11.9 Type 2 diabetes mellitus without complications; I10 Essential (primary) hypertension; N30.90 Cystitis, unspecified without hematuria; R33.9 Retention of urine, unspecified; K21.9 Gastro-esophageal reflux disease without esophagitis; Z79.899 Other long term (current) drug therapy; Z98.890 Other specified postprocedural states
CPT/HCPCS: 36415; 74177; 80048; 80053; 81001; 85025; 87040; 87077; 87086; 87186; 87324; 96365; 96366; 96374; 99283; 99284

== ENCOUNTER 2020-05-06 22:13 | Emergency (ER) | payer MEDICARE, BC ==
[2020-05-06 22:20] VITALS: RESP 18
--- NOTE | 2020-05-06 23:24 | XR ---
EXAMINATION TYPE: XR soft tissue neck DATE OF EXAM: 05/06/2020 COMPARISON: None HISTORY: Foreign body sensation TECHNIQUE: 2 views FINDINGS: Epiglottis is normal. Subglottic trachea appears normal. I see no evidence of radiopaque fo reign body. There is spondylotic change in the mid and lower cervical spine with anterior spur format ion. There is no compression fracture. There is C6-7 disc space narrowing. IMPRESSION: Spondylotic changes in the cervical spine. No evidence of a foreign body.
[2020-05-06] MEDS ORDERED: MAG HYDROX/AL HYDROX/SIMETH 30 ML CUP PO STA (23:46)
[2020-05-06] MEDS ORDERED: diphenhydrAMINE ELIXIR 25 MG/10 ML CUP PO STA (23:46)
--- NOTE | 2020-05-06 23:48 | ED ---
General Adult HPI - General Chief complaint: ENT Stated complaint: FB in throat Time Seen by Provider: 05/06/20 22:35 Source: patient Mode of arrival: ambulatory Limitations: no limitations - History of Present Illness Initial comments: 74-year-old male patient presents to the emergency department today for evaluation of foreign body sensation in his throat. Patient states he feels that there is something may be stuck in the left side of his throat. States symptoms started after he tried to swallow his Flomax dosage around 5 PM. States he has been trying numerous things to clear his throat including gargling with salt water, peroxide, and drinking water. He states his been unsuccessful. States he has had this problem in the past and had to have endoscopic procedure to remove the foreign body. He denies any pain to the throat. States he is able to swallow water and keep it down. Denies any vomiting. Denies any fever or chills. Denies any numbness, tingling, or weakness to his extremities or face. Patient denies any recent rash, cough, shortness of breath, chest pain, abdominal pain, diarrhea, constipation, back pain, dizziness, weakness, hematuria, dysuria, urinary urgency, urinary frequency, headache, visual changes, or any other complaints. - Related Data Home Medications Medication Instructions Recorded Confirmed Fluticasone Nasal [place] [Flonase 1 - 2 spr EA NOSTRIL DAILY PRN 10/29/16 03/26/20 Nasal [place]] Benazepril HCl 40 mg PO DAILY 03/16/20 03/26/20 Lansoprazole 30 mg PO Q48H 03/16/20 03/26/20 amLODIPine [Norvasc] 10 mg PO DAILY 03/16/20 03/26/20 Acetaminophen Tab [Tylenol] 650 mg PO Q6H PRN 03/26/20 03/26/20 Tamsulosin [Flomax] 0.4 mg PO DAILY 03/26/20 03/26/20 Previous Rx's Medication Instructions Recorded oxyCODONE HCL [OxyIR] 5 mg PO Q4H PRN 3 Days #18 tab 03/20/20 Cholestyramine (with Sugar) 4 gm PO QID #0 packet 03/27/20 [Questran Packet] Levofloxacin [Levaquin] 750 mg PO DAILY 14 Days #14 tab 03/27/20 Allergies Allergy/AdvReac Type Severity Reaction Status Date / Time No Known Allergies Allergy Verified 05/06/20 22:20 Review of Systems ROS Statement: Those systems with pertinent positive or pertinent negative responses have been documented in the HPI. ROS Other: All systems not noted in ROS Statement are negative. Past Medical History Past Medical History: Diabetes Mellitus, GERD/Reflux, Hypertension History of Any Multi-Drug Resistant Organisms: None Reported Past Surgical History: Hernia Repair Additional Past Surgical History / Comment(s): left knee, Inguinal hernia Past Psychological History: No Psychological Hx Reported Smoking Status: Never smoker Past Alcohol Use History: None Reported Past Drug Use History: None Reported General Exam Limitations: no limitations General appearance: alert, in no apparent distress, other (this is a well- developed, well-nourished adult male patient in no acute distress.) ENT exam: Present: normal exam, normal oropharynx, mucous membranes moist Neck exam: Present: normal inspection. Absent: tenderness, meningismus, lymphadenopathy Respiratory exam: Present: normal lung sounds bilaterally. Absent: respiratory distress, wheezes, rales, rhonchi, stridor Cardiovascular Exam: Present: regular rate, normal rhythm, normal heart sounds. Absent: systolic murmur, diastolic murmur, rubs, gallop, clicks Neurological exam: Present: alert, oriented X3, CN II-XII intact Psychiatric exam: Present: normal affect, normal mood Skin exam: Present: warm, dry, intact, normal color. Absent: rash Course Vital Signs 05/06/20 05/06/20 22:15 23:55 Temperature 98.3 F 98.1 F Pulse Rate 74 67 Respiratory 18 18 Rate Blood Pressure 177/106 150/99 O2 Sat by Pulse 99 97 Oximetry Medical Decision Making - Medical Decision Making 74-year-old male patient presents to the emergency department today for foreign body sensation to the left side of his throat. Physical examination is unremarkable. Visualization of the pharynx is normal. No soft tissue swelling noted to the neck. Soft tissue neck x-ray was obtained and showed no abnormalities. I did discuss findings with the patient. We did discuss possibility of irritation after getting the pill stuck. He is given Maalox with Benadryl and this did seem to improve his symptoms. He'll be discharged to follow-up with tomorrow as he had planned for endoscopy. He is instructed to follow-up with his primary care physician for recheck in 1-2 days. Return parameters were discussed in detail. He verbalizes understanding and agrees with this plan. Case discussed with Dr. Cotton. - Radiology Data Radiology results: report reviewed, image reviewed 2 views of the neck are obtained. Report is reviewed in its entirety. Impression by Dr. Mccabe shows spondylotic changes in the cervical spine. No evidence of a foreign body. Disposition Clinical Impression: Foreign body sensation in throat Disposition: HOME SELF-CARE Condition: Good Instructions (If sedation given, give patient instructions): Esophageal Stricture (ED) Additional Instructions: Follow-up with Dr. Ryan as soon as possible. Follow up to primary care physician for recheck in 1-2 days. Return to the emergency department for any new, worsening, or concerning symptoms. Is patient prescribed a controlled substance at d/c from ED?: No Referrals: Ivan Hilton MD [Primary Care Provider] - 1-2 days Ada Ryan MD [STAFF PHYSICIAN] - 1-2 days Time of Disposition: 23:48
[2020-05-07] VITALS: BP 150/99; PULSE 67; TEMP 98.1
== END 2020-05-07 | disposition home or self-care (01) ==
LOC: EC 22:13
DX: R09.89 Other specified symptoms and signs involving the circulatory and respiratory systems (principal); K21.9 Gastro-esophageal reflux disease without esophagitis; I10 Essential (primary) hypertension; Z79.899 Other long term (current) drug therapy
CPT/HCPCS: 70360; 99283